=== PATIENT | male | born 1970 | race African-American/Black ===

== ENCOUNTER 2016-02-23 10:37 | Inpatient (IN) | payer OTHER ==
[2016-02-23 11:27] VITALS: BMI 25.4
--- NOTE | 2016-02-23 11:40 | HP ---
CIWA Score - CIWA Score Nausea/Vomitin Muscle Tremors: 3 Anxiety: 3 Agitation: 3 Paroxysmal Sweats: 2 Orientation: 0-Oriented Tacttile Disturbances: 2-Mild Itch/Numbness/Burn Auditory Disturbances: 2-Mild Harshness/Frighten Visual Disturbances: 2-Mild Sensitivity Headache: 2-Mild CIWA-Ar Total Score: 22 Admission ROS BHS - HPI Chief Complaint: I NEED HELP TO STOP DRINKING ALCOHOL,COCAINE AND MARIJUANA, Allergies/Adverse Reactions: Allergies Allergy/AdvReac Type Severity Reaction Status Date / Time No Known Drug Allergies Allergy Verified 02/23/16 11:43 PASTA Allergy Severe Vomiting Uncoded 02/23/16 11:43 History of Present Illness: THIS 45 YEARS OLD MALE WITH ALCOHOL,COCIANE AND MARIJUANA DEPENDENCE,WITHDRAWAL SYMPTOM,LAST DETOX 10/07/15 TO 10/11/15 SYNCOPE ALCOHOL RELATED MIGRAINE HEADACHE LOW BACK PAIN NO SIGNIFICANT PERIOD OF SOBRIETY - Ebola screening Have you traveled outside of the country in the last 21 days: No Have you had contact with anyone from an Ebola affected area: No Have you been sick,other than usual withdrawal symptoms: No Do you have a fever: No - Review of Systems Constitutional: Loss of Appetite, Malaise, Night Sweats, Changes in sleep, Weakness, Unintentional Wgt. Loss EENT: reports: Tearing, Nose Congestion Respiratory: reports: No Symptoms reported Cardiac: reports: No Symptoms Reported GI: reports: Nausea, Poor Appetite, Vomiting, Abdominal cramping : reports: No Symptoms Reported, Lesions Musculoskeletal: reports: Muscle Pain Integumentary: reports: Dryness Neuro: reports: Headache, Tremors Endocrine: reports: No Symptoms Reported Hematology: reports: No Symptoms Reported Psychiatric: reports: Depressed Patient History - Patient Medical History Hx Anemia: Yes (not taking any iron supplement) Hx Asthma: No Hx Chronic Obstructive Pulmonary Disease (COPD): No Hx Cancer: No Hx Cardiac Disorders: No Hx Congestive Heart Failure: No Hx Hypertension: No Hx Hypercholesterolemia: No Hx Pacemaker: No HX Cerebrovascular Accident: No Hx Seizures: No Hx Dementia: No Hx Diabetes: No Hx Gastrointestinal Disorders: No Hx Liver Disease: No Hx Genitourinary Disorders: No Hx Sexually Transmitted Disorders: No Hx Renal Disease (ESRD): No Hx Thyroid Disease: No Hx Human Immunodeficiency Virus (HIV): No (negative LAST 10/07/15 TO 10/11/15) Hx Hepatitis C: No Hx Depression: No Hx Suicide Attempt: Yes (drug overdose 3 yrs ago) Hx Bipolar Disorder: Yes Hx Schizophrenia: Yes Other Medical History: NO SUICIDAL,NO HOMICIDAL - Patient Surgical History Past Surgical History: No Hx Neurologic Surgery: No Hx Cataract Extraction: No Hx Cardiac Surgery: No Hx Lung Surgery: No Hx Breast Surgery: No Hx Breast Biopsy: No Hx Abdominal Surgery: No Hx Appendectomy: No Hx Cholecystectomy: No Hx Genitourinary Surgery: No Hx Section: No Hx Orthopedic Surgery: No Anesthesia Reaction: No - PPD History Previous Implant?: Yes Documented Results: Negative w/proof Date: 10/09/15 Results: 0 mm PPD to be Administered?: No - Smoking Cessation Smoking history: Current every day smoker Have you smoked in the past 12 months: Yes Aproximately how many cigarettes per day: 3 Cigars Per Day: 0 Hx Chewing Tobacco Use: No Initiated information on smoking cessation: Yes 'Breaking Loose' booklet given: 02/23/16 - Substance & Tx. History Hx Alcohol Use: Yes Hx Substance Use: Yes Substance Use Type: Alcohol, Cocaine, Marijuana Hx Substance Use Treatment: Yes ([facility] 10/07/15 TO 10/11/15) - Substances Abused CCAINE Route: Smoking Frequency: Daily Amount used: $100 Age of first use: 26 Date of Last Use: 02/22/16 mARIJUNA Route: Smoking Frequency: Daily Amount used: $40 Age of first use: 19 Date of Last Use: 02/23/16 Family Disease History - Family Disease History Family Disease History: Diabetes: Mother (alcohol), Other: Father (ALCOHOL), Mother Admission Physical Exam S - Vital Signs Vital Signs: Vital Signs - 24 hr 02/23/16 11:25 Temperature 97.2 F L Pulse Rate 62 Respiratory 18 Rate Blood Pressure 120/74 - Physical General Appearance: Yes: Moderate Distress, Tremorous, Irritable, Sweating, Anxious HEENTM: Yes: Nasal Congestion Respiratory: Yes: Lungs Clear Neck: Yes: Within Normal Limits Breast: Yes: Within Normal Limits Cardiology: Yes: Within Normal Limits, Regular Rhythm, Regular Rate, S1, S2 Abdominal: Yes: Within Normal Limits, Non Tender, Flat, Soft Genitourinary: Yes: Within Normal Limits Back: Yes: Muscle Spasm Musculoskeletal: Yes: Back pain Extremities: Yes: Tremors 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, Fully Oriented, Alert, Motor Strength 5/5 Integumentary: Yes: Dry Lymphatic: Yes: Within Normal Limits - Diagnostic (1) Alcohol dependence with uncomplicated withdrawal Current Visit: No Status: Acute (2) Cannabis dependence Current Visit: No Status: Acute (3) Cocaine dependence Current Visit: No Status: Acute (4) Nicotine dependence Current Visit: No Status: Acute Qualifiers: Nicotine product type: cigarettes Substance use status: uncomplicated Qualified Code(s): F17.210 - Nicotine dependence, cigarettes, uncomplicated (5) Low back pain Current Visit: No Status: Chronic (6) Paranoid schizophrenia Current Visit: No Status: Chronic (7) Syncope Current Visit: No Status: Suspected Cleared for Admission [facility] - Detox or Rehab [facility] Level of Care: Medically Managed Detox Regimen/Protocol: Librium [facility] Breath Alcohol Content Breath Alcohol Content: 0 Urine Drug Screen - Results Drug Screen Negative: No Urine Drug Screen Results: THC-Marijuana, AJMES-Cocaine
[2016-02-23] MEDS ORDERED: MAGNESIUM CITRATE 300 ML BOTTLE PO PRN (11:48)
[2016-02-23] MEDS ORDERED: LOPERAMIDE HCL 2 MG CAPSULE PO PRN (11:48)
[2016-02-23] MEDS ORDERED: MAG HYDROX/AL HYDROX/SIMETH 30 ML UNIT-DOSE CUP PO PRN (11:48)
[2016-02-23] MEDS ORDERED: P-EPHED 60MG/TRIPROLIDI 2.5MG TABLET PO PRN (11:48)
[2016-02-23] MEDS ORDERED: diphenhydrAMINE HCL 50 MG CAPSULE PO PRN (11:48)
[2016-02-23] MEDS ORDERED: guaiFENesin/D-METHORPHAN HB 10 ML UNIT-DOSE CUPS PO PRN (11:48)
[2016-02-23] MEDS ORDERED: MENTHOL/PHENOL 1 EACH UD MM PRN (11:48)
[2016-02-23] MEDS ORDERED: ACETAMINOPHEN 325 MG TABLET (FP) PO PRN (11:48)
[2016-02-23] MEDS ORDERED: IBUPROFEN 400 MG TABLET (FP) PO PRN (11:48)
[2016-02-23] MEDS ORDERED: MAGNESIUM HYDROX 2400MG/30ML ORAL SUSPENSION 30 ML CUP PO PRN (11:48)
[2016-02-23] MEDS ORDERED: hydrOXYzine PAMOATE 50 MG CAPSULE (FP) PO PRN (11:48)
[2016-02-23] MEDS ORDERED: chlordiazePOXIDE HCL 25 MG CAPSULE PO PRN (11:48)
[2016-02-23] MEDS ORDERED: chlordiazePOXIDE HCL 25 MG CAPSULE PO ONE (11:53)
--- NOTE | 2016-02-23 14:58 | CONSULT ---
[facility] Psychiatric Consult - Data Date of interview: 02/23/16 Admission source: [facility] Identifying data: One of multiple admissions to [facility] for this 45 y/o AA male seeking detox treatment on for alcohol,cocaine (crack) and marijuana dependence.Patient is single,a father of three (he denies having children in this interview),domiciled (lives with his mother),unemployed and supported on SSI benefits. Substance Abuse History: - Smoking Cessation. Smoking history: Current every day smoker. Have you smoked in the past 12 months: Yes. Aproximately how many cigarettes per day: 3. Cigars Per Day: 0. Hx Chewing Tobacco Use: No. Initiated information on smoking cessation: Yes. 'Breaking Loose' booklet given : 02/23/16. - Substance & Tx. History. Hx Alcohol Use: Yes. Hx Substance Use : Yes. Substance Use Type: Alcohol, Cocaine, Marijuana. Hx Substance Use Treatment: Yes ([facility] 10/07/15 TO 10/11/15). - Substances Abused. CCAINE. Route: Smoking. Frequency: Daily. Amount used: $100. Age of first use: 26. Date of Last Use: 02/22/16. mARIJUNA. Route: Smoking. Frequency: Daily. Amount used: $40. Age of first use: 19. Date of Last Use: 02/23/16 Medical History: Significant for a history of pulmonary embolism and chronic lower back pain. Psychiatric History: History of multiple psychiatric hospitalizations under the diagnosis of paranoid schizophrenia.Mr Roblero is well known to [facility] where he goes in times of crisis for refill of medications (extensive utilization of CPEP services).Medications : zyprexa 10 mg po hs + trazodone 50 mg po hs.Noted history of a suicide attempt via overdose with medications years ago.Insomnia reported by patient. Physical/Sexual Abuse/Trauma History: Patient denies. Mental Status Exam - Mental Status Exam Alert and Oriented to: Time, Place, Person Cognitive Function: Good Patient Appearance: Well Groomed Mood: Withdrawn, Hopeful Affect: Appropriate, Blunted Patient Behavior: Fatigued, Appropriate, Cooperative Speech Pattern: Clear Voice Loudness: Normal Thought Process: Goal Oriented Thought Disorder: Bizarre Hallucinations: Denies Suicidal Ideation: Denies Homicidal Ideation: Denies Insight/Judgement: Poor Sleep: Poorly, Difficulty falling asleep Appetite: Good Muscle strength/Tone: Normal Gait/Station: Normal Psychiatric Findings - Problem List ([place] 1, 2,3) (1) Alcohol dependence with uncomplicated withdrawal Current Visit: Yes Status: Acute (2) Cannabis dependence Current Visit: Yes Status: Acute (3) Cocaine dependence Current Visit: Yes Status: Acute (4) Nicotine dependence Current Visit: Yes Status: Acute Qualifiers: Nicotine product type: cigarettes Substance use status: uncomplicated Qualified Code(s): F17.210 - Nicotine dependence, cigarettes, uncomplicated (5) Substance induced mood disorder Current Visit: Yes Status: Acute (6) Paranoid schizophrenia Current Visit: Yes Status: Chronic (7) Low back pain Current Visit: Yes Status: Chronic - Initial Treatment Plan Initial Treatment Plan: Psychoeducation.Detoxification.Medications :olanzapine 10 mg po hs + trazodone 50 mg po hs.Side effects/benefits discussed with patient.Made aware of risk of metabolic syndrome (zyprexa) and priapism ( trazodone).Patient consents (verbally) to follow this regimen.Observation.
[2016-02-23 16:33] LABS: URINE APPEARANCE CLEAR; URINE BILIRUBIN NEGATIVE (NEGATIVE); URINE BLOOD TRACE-LYSE (NEGATIVE); URINE COLOR LT. YELLOW; URINE GLUCOSE (UA) NEGATIVE (NEGATIVE); URINE KETONE NEGATIVE (NEGATIVE); URINE LEUK ESTERASE NEGATIVE (NEGATIVE); URINE NITRITE NEGATIVE (NEGATIVE); URINE PROTEIN NEGATIVE (NEGATIVE); URINE UROBILINOGEN 0.2 E.U/dl E.U./dl (0.2-1.0)
[2016-02-23] MEDS: chlordiazePOXIDE HCL 25 MG CAPSULE PO SCH ×2 (17:55→22:18)
[2016-02-23] MEDS: THIAMINE HCL 100 MG TABLET (FP) PO SCH (22:17)
[2016-02-23] MEDS: traZODone HCL 50 MG TABLET (FP) PO SCH (22:18)
[2016-02-23] MEDS: OLANZapine 10 MG TABLET PO SCH (22:18)
--- NOTE | 2016-02-23 23:56 | EKG ---
Test Reason : Blood Pressure : / mmHG Vent. Rate : 066 BPM Atrial Rate : 066 BPM P-R Int : 154 ms QRS Dur : 084 ms QT Int : 422 ms P-R-T Axes : 077 076 046 degrees QTc Int : 442 ms NORMAL SINUS RHYTHM NORMAL ECG NO PREVIOUS ECGS AVAILABLE Confirmed by RAMU BELL, BRIAN ([id number]) on 02/23/2016 11:56:38 PM Referred By: London Mark Confirmed By:BRIAN GUALLPA MD
[2016-02-24] MEDS: chlordiazePOXIDE HCL 25 MG CAPSULE PO SCH ×4 (05:07→22:36)
--- NOTE | 2016-02-24 09:35 | PN ---
[facility] CIWA - CIWA Score Nausea/Vomitin Muscle Tremors: 3 Anxiety: 3 Agitation: 3 Paroxysmal Sweats: 3 Orientation: 0-Oriented Tacttile Disturbances: 2-Mild Itch/Numbness/Burn Auditory Disturbances: 0-None Visual Disturbances: 0-None Headache: 0-None Present CIWA-Ar Total Score: 17 S Progress Note (SOAP) Subjective: interrupted sleep, sweats , shakes Objective: 02/24/16 09:33 Vital Signs Temperature 98.2 F 02/24/16 05:46 Pulse Rate 64 02/24/16 05:46 Respiratory Rate 16 02/24/16 05:46 Blood Pressure 106/66 02/24/16 05:46 O2 Sat by Pulse Oximetry (%) Laboratory Tests 02/23/16 14:00 Urine Color Lt. yellow Urine Appearance Clear Urine pH 6.0 Ur Specific [place] 1.025 Urine Protein Negative Urine Glucose (UA) Negative Urine Ketones Negative Urine Blood Trace-lyse Urine Nitrite Negative Urine Bilirubin Negative Urine Urobilinogen 0.2 e.u/dl Ur Leukocyte Esterase Negative Laboratory Tests 02/23/16 14:00 Urine Color Lt. yellow Urine Appearance Clear Urine pH 6.0 Ur Specific [place] 1.025 Urine Protein Negative Urine Glucose (UA) Negative Urine Ketones Negative Urine Blood Trace-lyse Urine Nitrite Negative Urine Bilirubin Negative Urine Urobilinogen 0.2 e.u/dl Ur Leukocyte Esterase Negative pending labs pt aox3 in nad ambualting Assessment: 02/24/16 09:35 withdrawlsx;s Plan: cont. detox increase fluids f/up pending labs
[2016-02-24] MEDS: PRENATAL VITAMINS W/ FOLIC ACID TABLET (FP) PO SCH (10:11)
[2016-02-24 10:19] LABS: MCH 24.5 pg (25.7-33.7); MCHC 32.2 g/dl (32.0-35.9); MEAN CELL VOLUME 76.2 fl (80-96); RDW 14.6 % (11.9-15.9); WHITE BLOOD COUNT 5.5 K/mm3 (4.0-10.0)
[2016-02-24 10:46] LABS: ALBUMIN 3.7 g/dl (3.4-5.0); ALK PHOS 86 U/L (45-117); ANION GAP 7 (8-16); BILIRUBIN,TOTAL 0.3 mg/dL (0.2-1.0); CALCIUM 8.7 mg/dL (8.5-10.1); CO2 26 mmol/L (21-32); CREATININE 1.1 mg/dL (0.7-1.3); GLUCOSE,RANDOM 113 mg/dL (74-106); SGOT/AST 20 U/L (15-37); SGPT/ALT 23 U/L (12-78); TOT PROT 6.5 g/dl (6.4-8.2)
[2016-02-24 11:57] LABS: PLATELET ESTIMATE ADEQUATE (NORMAL)
[2016-02-24] MEDS: OLANZapine 10 MG TABLET PO SCH (22:13)
[2016-02-24] MEDS: traZODone HCL 50 MG TABLET (FP) PO SCH (22:14)
[2016-02-24] MEDS: THIAMINE HCL 100 MG TABLET (FP) PO SCH (22:14)
[2016-02-25] MEDS: chlordiazePOXIDE HCL 25 MG CAPSULE PO SCH ×2 (05:22→10:14)
--- NOTE | 2016-02-25 08:46 | PN ---
S CIWA - CIWA Score Nausea/Vomitin Muscle Tremors: 3 Anxiety: 2 Agitation: 2 Paroxysmal Sweats: No Perspiration Orientation: 1-Uncertain about Date Tacttile Disturbances: 1-Very Mild Itch/Numbness Auditory Disturbances: 1-Very Mild Visual Disturbances: 1-Very Mild Sensitivity Headache: 2-Mild CIWA-Ar Total Score: 16 BHS Progress Note (SOAP) Subjective: ALERT,IRRITABLE,ANXIOUS,INTERRUPTED,TREMOR,TREMOR Objective: 02/25/16 08:43 Vital Signs Temperature 97.5 F L 02/25/16 06:14 Pulse Rate 56 L 02/25/16 06:14 Respiratory Rate 16 02/25/16 06:14 Blood Pressure 115/74 02/25/16 06:14 O2 Sat by Pulse Oximetry (%) EKG NSR,NORMAL ECG Laboratory Last Values WBC 5.5 K/mm3 (4.0-10.0) D 02/24/16 06:00 RBC 5.15 M/mm3 (4.00-5.60) 02/24/16 06:00 Hgb 12.6 GM/dL (11.7-16.9) 02/24/16 06:00 Hct 39.2 % (35.4-49) 02/24/16 06:00 MCV 76.2 fl (80-96) L 02/24/16 06:00 MCHC 32.2 g/dl (32.0-35.9) 02/24/16 06:00 RDW 14.6 % (11.9-15.9) 02/24/16 06:00 Plt Count Not Reportable 02/24/16 06:00 MPV 8.0 fl (7.5-11.1) 02/24/16 06:00 Platelet Estimate Adequate (NORMAL) 02/24/16 06:00 Platelet Comment Slt plt clumping 02/24/16 06:00 Sodium 139 mmol/L (136-145) 02/24/16 06:00 Potassium 3.7 mmol/L (3.5-5.1) 02/24/16 06:00 Chloride 106 mmol/L (98-107) 02/24/16 06:00 Carbon Dioxide 26 mmol/L (21-32) 02/24/16 06:00 Anion Gap 7 (8-16) L 02/24/16 06:00 BUN 19 mg/dL (7-18) H D 02/24/16 06:00 Creatinine 1.1 mg/dL (0.7-1.3) D 02/24/16 06:00 Creat Clearance w eGFR > 60 (>60) 02/24/16 06:00 Random Glucose 113 mg/dL (74-106) H D 02/24/16 06:00 Calcium 8.7 mg/dL (8.5-10.1) 02/24/16 06:00 Total Bilirubin 0.3 mg/dL (0.2-1.0) 02/24/16 06:00 AST 20 U/L (15-37) 02/24/16 06:00 ALT 23 U/L (12-78) 02/24/16 06:00 Alkaline Phosphatase 86 U/L (45-117) D 02/24/16 06:00 Total Protein 6.5 g/dl (6.4-8.2) 02/24/16 06:00 Albumin 3.7 g/dl (3.4-5.0) 02/24/16 06:00 Urine Color Lt. yellow 02/23/16 14:00 Urine Appearance Clear 02/23/16 14:00 Urine pH 6.0 (5.0-8.0) 02/23/16 14:00 Ur Specific [place] 1.025 (1.001-1.035) 02/23/16 14:00 Urine Protein Negative (NEGATIVE) 02/23/16 14:00 Urine Glucose (UA) Negative (NEGATIVE) 02/23/16 14:00 Urine Ketones Negative (NEGATIVE) 02/23/16 14:00 Urine Blood Trace-lyse (NEGATIVE) 02/23/16 14:00 Urine Nitrite Negative (NEGATIVE) 02/23/16 14:00 Urine Bilirubin Negative (NEGATIVE) 02/23/16 14:00 Urine Urobilinogen 0.2 e.u/dl E.U./dl (0.2-1.0) 02/23/16 14:00 Ur Leukocyte Esterase Negative (NEGATIVE) 02/23/16 14:00 RPR Titer Nonreactive (NONREACTIVE) 02/24/16 06:00 02/25/16 08:44 Assessment: 02/25/16 08:44 WITHDRAWAL SYMPTOM 02/25/16 08:45 Plan: CONTINUE DETOX,ENCOURAGE ORAL FLUID
--- NOTE | 2016-02-25 08:48 | PN ---
BHS Progress Note Note: INITIAL GLUCOSE IS 113,BGM MONITORING
[2016-02-25] MEDS: PRENATAL VITAMINS W/ FOLIC ACID TABLET (FP) PO SCH (10:13)
[2016-02-25] MEDS: chlordiazePOXIDE 5 MG CAPSULE PO SCH ×2 (17:55→23:13)
[2016-02-25] MEDS: OLANZapine 10 MG TABLET PO SCH (22:32)
[2016-02-25] MEDS: traZODone HCL 50 MG TABLET (FP) PO SCH (22:32)
[2016-02-25] MEDS: THIAMINE HCL 100 MG TABLET (FP) PO SCH (22:32)
[2016-02-26] MEDS: chlordiazePOXIDE 5 MG CAPSULE PO SCH ×2 (06:27→10:48)
--- NOTE | 2016-02-26 09:38 | PN ---
S Progress Note (SOAP) Subjective: ALERT,ANXIOUS,INTERRUPTED SLEEP Objective: 02/26/16 09:37 Vital Signs Temperature 97.5 F L 02/26/16 06:00 Pulse Rate 54 L 02/26/16 06:00 Respiratory Rate 16 02/26/16 06:00 Blood Pressure 109/59 02/26/16 06:00 O2 Sat by Pulse Oximetry (%) Assessment: 02/26/16 09:37 WITHDRAWAL SYMPTOM Plan: CONTINUE DETOX,DISCHARGE IN AM
[2016-02-26] MEDS: PRENATAL VITAMINS W/ FOLIC ACID TABLET (FP) PO SCH (10:48)
[2016-02-26] MEDS: chlordiazePOXIDE HCL 10 MG CAPSULE PO SCH ×2 (18:24→22:04)
[2016-02-26] MEDS: traZODone HCL 50 MG TABLET (FP) PO SCH (22:04)
[2016-02-26] MEDS: OLANZapine 10 MG TABLET PO SCH (22:04)
[2016-02-26] MEDS: THIAMINE HCL 100 MG TABLET (FP) PO SCH (22:04)
[2016-02-27] MEDS: chlordiazePOXIDE HCL 10 MG CAPSULE PO SCH (05:54)
--- NOTE | 2016-02-27 09:28 | PN ---
S Progress Note (SOAP) Subjective: ALERT,NO COMPLAINT Objective: 02/27/16 09:27 Vital Signs Temperature 97.5 F L 02/27/16 06:00 Pulse Rate 57 L 02/27/16 06:00 Respiratory Rate 18 02/27/16 06:00 Blood Pressure 112/60 02/27/16 06:00 O2 Sat by Pulse Oximetry (%) Assessment: 02/27/16 09:27 DETOX COMPLETED,NO WITHDRAWAL SYMPTOM Plan: DISCHARGE TODAY,FOLLOW UP WITH AFTER CARE PROGRAM ARRANGEMENT
--- NOTE | 2016-02-27 09:31 | DS ---
[facility] Detox Discharge Summary Admission Date: 02/23/16 Discharge Date: 02/27/16 - History Present History: Alcohol Dependence, Cannabis Dependence, Cocaine Dependence Additional Comments: FOLLOW UP WITH AFTER CARE PROGRAM ARRANGEMENT Pertinent Past History: SCHIZOPHRENIA - Physical Exam Results Vital Signs: Vital Signs Temperature 97.5 F L 02/27/16 06:00 Pulse Rate 57 L 02/27/16 06:00 Respiratory Rate 18 02/27/16 06:00 Blood Pressure 112/60 02/27/16 06:00 O2 Sat by Pulse Oximetry (%) Pertinent Admission Physical Exam Findings: WITHDRAWAL SYMPTOM - Treatment Hospital Course: Detox Protocol Followed, Detoxed Safely, Responded well, Discharged Condition Good Patient has Accepted a Rehab Referral to: [facility] - Medication Discharge Medications: Ambulatory Orders Trazodone HCl [Desyrel -] 50 mg PO HS 10/07/15 Olanzapine 10 mg PO HS #30 tablet 10/08/15 Olanzapine [Zyprexa] 10 mg PO HS #30 tablet 02/23/16 Trazodone HCl [Desyrel -] 50 mg PO HS #30 tablet 02/23/16 - Diagnosis (1) Alcohol dependence with uncomplicated withdrawal Current Visit: Yes Status: Acute (2) Cannabis dependence Current Visit: Yes Status: Acute (3) Cocaine dependence Current Visit: Yes Status: Acute (4) Nicotine dependence Current Visit: Yes Status: Acute Qualifiers: Nicotine product type: cigarettes Substance use status: uncomplicated Qualified Code(s): F17.210 - Nicotine dependence, cigarettes, uncomplicated (5) Low back pain Current Visit: Yes Status: Chronic (6) Paranoid schizophrenia Current Visit: Yes Status: Chronic (7) Syncope Current Visit: No Status: Suspected - AMA Did Patient Leave Against Medical Advice: No
[2016-02-27 10:14] VITALS: BP 131/76; PULSE 74; TEMP 97.7
== END 2016-02-27 10:15 | disposition home or self-care (01) | DRG 774 ==
LOC: YASAS 10:37 → Y6N 11:46
PROVIDERS: ADMIT Internal Medicine Addiction Medicine; ATTEND Internal Medicine Addiction Medicine
PROC: HZ2ZZZZ Detoxification Services for Substance Abuse Treatment (ICD-10-PCS; principal; 2016-02-23)
DX: F10.230 Alcohol dependence with withdrawal, uncomplicated (principal); F14.20 Cocaine dependence, uncomplicated; F12.20 Cannabis dependence, uncomplicated; F17.210 Nicotine dependence, cigarettes, uncomplicated; F20.0 Paranoid schizophrenia; F19.24 Other psychoactive substance dependence with psychoactive substance-induced mood disorder; M54.5 Low back pain; G89.29 Other chronic pain; Z86.79 Personal history of other diseases of the circulatory system; Z86.711 Personal history of pulmonary embolism; Z86.2 Personal history of diseases of the blood and blood-forming organs and certain disorders involving the immune mechanism; Z91.5 Personal history of self-harm
CPT/HCPCS: 36415; 80053; 81003; 85027; 86593; 93005; 93010

== ENCOUNTER 2016-06-23 10:47 | Inpatient (IN) | payer OTHER ==
[2016-06-23 12:51] VITALS: BMI 23.6
--- NOTE | 2016-06-23 13:36 | HP ---
CIWA Score - CIWA Score Nausea/Vomitin-Mild Nausea/No Vomiting Muscle Tremors: 4-Moderate,w/Arms Extend Anxiety: 3 Agitation: 4-Moderately Restless Paroxysmal Sweats: 3 Orientation: 0-Oriented Tacttile Disturbances: 0-None Auditory Disturbances: 0-None Visual Disturbances: 0-None Headache: 1-Very Mild CIWA-Ar Total Score: 16 Admission ROS BHS - HPI Chief Complaint: I am here to detox. Allergies/Adverse Reactions: Allergies Allergy/AdvReac Type Severity Reaction Status Date / Time No Known Drug Allergies Allergy Verified 06/23/16 13:19 PASTA Allergy Severe Vomiting Uncoded 06/23/16 13:19 History of Present Illness: pt is a 46yr old male with a history of alcohol, cocaine and cannabis dependence seeking detox for treatment. Exam Limitations: No Limitations - Ebola screening Have you traveled outside of the country in the last 21 days: No Have you had contact with anyone from an Ebola affected area: No Have you been sick,other than usual withdrawal symptoms: No Do you have a fever: No - Review of Systems Constitutional: Diaphoresis, Loss of Appetite, Night Sweats, Unintentional Wgt. Loss EENT: reports: Blurred Vision Respiratory: reports: No Symptoms reported Cardiac: reports: No Symptoms Reported GI: reports: Diarrhea, Poor Appetite, Poor Fluid Intake : reports: No Symptoms Reported Musculoskeletal: reports: Back Pain, Joint Pain, Muscle Pain Integumentary: reports: No Symptoms Reported, Flushing, Sweating Neuro: reports: Tingling, Tremors Endocrine: reports: See HPI, Excessive Sweating, Flushing, Intolerance to Cold Hematology: reports: No Symptoms Reported, Anemia Psychiatric: reports: Judgement Intact, Orientated x3, Agitated, Anxious Other Systems: Reviewed and Negative Patient History - Patient Medical History Hx Anemia: Yes (not taking any iron supplement) Hx Asthma: No Hx Chronic Obstructive Pulmonary Disease (COPD): No Hx Cancer: No Hx Cardiac Disorders: No Hx Congestive Heart Failure: No Hx Hypertension: No Hx Hypercholesterolemia: No Hx Pacemaker: No HX Cerebrovascular Accident: No Hx Seizures: No Hx Dementia: No Hx Diabetes: No Hx Gastrointestinal Disorders: No Hx Liver Disease: No Hx Genitourinary Disorders: No Hx Sexually Transmitted Disorders: No Hx Renal Disease (ESRD): No Hx Thyroid Disease: No Hx Human Immunodeficiency Virus (HIV): No (negative) Hx Hepatitis C: No (negative) Hx Depression: Yes Hx Suicide Attempt: Yes (drug overdose 3 yrs ago) Hx Bipolar Disorder: Yes Hx Schizophrenia: Yes - Patient Surgical History Past Surgical History: No Hx Neurologic Surgery: No Hx Cataract Extraction: No Hx Cardiac Surgery: No Hx Lung Surgery: No Hx Breast Surgery: No Hx Breast Biopsy: No Hx Abdominal Surgery: No Hx Appendectomy: No Hx Cholecystectomy: No Hx Genitourinary Surgery: No Hx Section: No Hx Orthopedic Surgery: No Anesthesia Reaction: No - PPD History Previous Implant?: Yes Documented Results: Negative w/o proof Date: 10/09/15 Results: 0 mm PPD to be Administered?: No - Reproductive History Patient is a Female of Child Bearing Age (11 -55 yrs old): No - Smoking Cessation Smoking history: Current every day smoker Have you smoked in the past 12 months: Yes Aproximately how many cigarettes per day: 3 Cigars Per Day: 0 Hx Chewing Tobacco Use: No Initiated information on smoking cessation: Yes 'Breaking Loose' booklet given: 06/23/16 - Substance & Tx. History Hx Alcohol Use: Yes Hx Substance Use: Yes Substance Use Type: Alcohol, Cocaine Hx Substance Use Treatment: Yes - Substances Abused Crack Route: Smoking Frequency: Daily Amount used: $100 Age of first use: 19 Date of Last Use: 06/22/16 Alcohol-vodka/beer Route: Oral Frequency: Daily Amount used: 2 pints vodka/1 six pack beer Age of first use: 19 Date of Last Use: 06/22/16 Family Disease History - Family Disease History Family Disease History: Diabetes: Mother (alcohol), Other: Father (ALCOHOL), Mother Admission Physical Exam [facility] - Vital Signs Vital Signs: Vital Signs - 24 hr 06/23/16 12:49 Temperature 96.4 F L Pulse Rate 63 Respiratory 20 Rate Blood Pressure 135/74 - Physical General Appearance: Yes: Appropriately Dressed, Moderate Distress, Tremorous, Irritable, Sweating, Anxious HEENTM: Yes: Normal Voice Respiratory: Yes: Lungs Clear, Normal Breath Sounds, No Respiratory Distress Neck: Yes: No masses,lesions,Nodules Breast: Yes: Within Normal Limits Cardiology: Yes: Regular Rhythm, Regular Rate, S1, S2 Abdominal: Yes: Normal Bowel Sounds, Non Tender, Soft Genitourinary: Yes: Within Normal Limits Back: Yes: Normal Inspection Musculoskeletal: Yes: full range of Motion, Back pain Extremities: Yes: Normal Capillary Refill, Normal Inspection, Non-Tender, Tremors Neurological: Yes: Fully Oriented, Alert, Normal Response Integumentary: Yes: Normal Color, Diaphoresis Lymphatic: Yes: Within Normal Limits - Diagnostic (1) Alcohol dependence with uncomplicated withdrawal Current Visit: Yes Status: Chronic (2) Cocaine dependence Current Visit: Yes Status: Chronic (3) Nicotine dependence Current Visit: Yes Status: Chronic Qualifiers: Nicotine product type: cigarettes Substance use status: uncomplicated Qualified Code(s): F17.210 - Nicotine dependence, cigarettes, uncomplicated (4) Low back pain Current Visit: Yes Status: Chronic (5) Cannabis dependence Current Visit: Yes Status: Chronic Cleared for Admission [facility] - Detox or Rehab [facility] Level of Care: Medically Managed Detox Regimen/Protocol: Librium [facility] Breath Alcohol Content Breath Alcohol Content: 0 Urine Drug Screen - Results Drug Screen Negative: No Urine Drug Screen Results: THC-Marijuana, JAMES-Cocaine
[2016-06-23] MEDS ORDERED: P-EPHED 60MG/TRIPROLIDI 2.5MG TABLET PO PRN (13:39)
[2016-06-23] MEDS ORDERED: ACETAMINOPHEN 325 MG TABLET (FP) PO PRN (13:39)
[2016-06-23] MEDS ORDERED: guaiFENesin/D-METHORPHAN HB 10 ML UNIT-DOSE CUPS PO PRN (13:39)
[2016-06-23] MEDS ORDERED: MAGNESIUM CITRATE 300 ML BOTTLE PO PRN (13:39)
[2016-06-23] MEDS ORDERED: IBUPROFEN 400 MG TABLET (FP) PO PRN (13:39)
[2016-06-23] MEDS ORDERED: chlordiazePOXIDE HCL 25 MG CAPSULE PO PRN (13:39)
[2016-06-23] MEDS ORDERED: MAG HYDROX/AL HYDROX/SIMETH 30 ML UNIT-DOSE CUP PO PRN (13:39)
[2016-06-23] MEDS ORDERED: MENTHOL/PHENOL 1 EACH UD MM PRN (13:39)
[2016-06-23] MEDS ORDERED: LOPERAMIDE HCL 2 MG CAPSULE PO PRN (13:39)
[2016-06-23] MEDS ORDERED: MAGNESIUM HYDROX 2400MG/30ML ORAL SUSPENSION 30 ML CUP PO PRN (13:39)
[2016-06-23] MEDS ORDERED: diphenhydrAMINE HCL 50 MG CAPSULE PO PRN (13:39)
[2016-06-23] MEDS ORDERED: hydrOXYzine PAMOATE 50 MG CAPSULE (FP) PO PRN (13:39)
[2016-06-23] MEDS ORDERED: chlordiazePOXIDE HCL 25 MG CAPSULE PO ONE (14:57)
[2016-06-23] MEDS: chlordiazePOXIDE HCL 25 MG CAPSULE PO SCH ×2 (18:00→22:45)
[2016-06-23 18:44] LABS: URINE APPEARANCE CLEAR; URINE BILIRUBIN NEGATIVE (NEGATIVE); URINE BLOOD NEGATIVE (NEGATIVE); URINE COLOR LTYELLOW; URINE GLUCOSE (UA) NEGATIVE (NEGATIVE); URINE KETONE NEGATIVE (NEGATIVE); URINE LEUK ESTERASE NEGATIVE (NEGATIVE); URINE NITRITE NEGATIVE (NEGATIVE); URINE PROTEIN NEGATIVE (NEGATIVE); URINE UROBILINOGEN NEGATIVE E.U./dl (0.2-1.0)
--- NOTE | 2016-06-23 19:47 | CONSULT ---
[facility] Psychiatric Consult - Data Date of interview: 06/23/16 Admission source: [facility] Identifying data: Another admission to [facility] for this 46 y/o AA male seeking detox treatment on for alcohol,cocaine (crack) and marijuana dependence.Patient is single without children,domiciled (lives with his mother), unemployed and supported on SSI benefits. Substance Abuse History: - Smoking Cessation. Smoking history: Current every day smoker. Have you smoked in the past 12 months: Yes. Aproximately how many cigarettes per day: 3. Cigars Per Day: 0. Hx Chewing Tobacco Use: No. Initiated information on smoking cessation: Yes. 'Breaking Loose' booklet given : 06/23/16. - Substance & Tx. History. Hx Alcohol Use: Yes. Hx Substance Use : Yes. Substance Use Type: Alcohol, Cocaine. Hx Substance Use Treatment: Yes. - Substances Abused. Crack. Route: Smoking. Frequency: Daily. Amount used: $100. Age of first use: 19. Date of Last Use: 06/22/16. Alcohol- vodka/beer. Route: Oral. Frequency: Daily. Amount used: 2 pints vodka/1 six pack beer. Age of first use: 19. Date of Last Use: 06/22/16. Confirmed by patient. Medical History: History of pulmonary embolism,anemia and chronic lower back pain. Psychiatric History: History of multiple psychiatric hospitalizations.Diagnosed with Paranoid Schizophrenia.No history of regular OPD care.Mr Roblero is well known to [facility] (more than five hospitalizations).He utilizes their [facility] services for medication refills (zyprexa 10 mg po hs + trazodone 50 mg po hs).Remote history of a suicide attempt (overdose with medications). Physical/Sexual Abuse/Trauma History: Patient denies. Additional Comment: Urine Drug Screen Results: THC-Marijuana, JAMES-Cocaine.Noted. Mental Status Exam - Mental Status Exam Alert and Oriented to: Time, Place, Person Cognitive Function: Good Patient Appearance: Unkempt, Disheveled (malodorous;derelict braided haido and matta) Mood: Nervous, Withdrawn Affect: Blunted Patient Behavior: Fatigued, Cooperative Speech Pattern: Clear Voice Loudness: Moderately Soft/Quiet Thought Process: Goal Oriented Thought Disorder: Bizarre Hallucinations: Denies Suicidal Ideation: Denies Homicidal Ideation: Denies Insight/Judgement: Poor Sleep: Poorly, Difficulty falling asleep Appetite: Good Muscle strength/Tone: Normal Gait/Station: Normal Psychiatric Findings - Problem List ([place] 1, 2,3) (1) Alcohol dependence with uncomplicated withdrawal Current Visit: Yes Status: Acute (2) Cannabis dependence Current Visit: Yes Status: Acute (3) Cocaine dependence Current Visit: Yes Status: Acute (4) Nicotine dependence Current Visit: Yes Status: Acute Qualifiers: Nicotine product type: cigarettes Substance use status: uncomplicated Qualified Code(s): F17.210 - Nicotine dependence, cigarettes, uncomplicated (5) Substance induced mood disorder Current Visit: Yes Status: Acute (6) Paranoid schizophrenia Current Visit: Yes Status: Chronic (7) Low back pain Current Visit: Yes Status: Chronic - Initial Treatment Plan Initial Treatment Plan: Psychoeducation.Detoxification.Medications : zyprexa 10 mg po hs + trazodone 50 mg po hs.Side effects/benefits discussed with patient.Made aware of potential for priapism (trazodone) and metabolic syndrome, adverse cardiac events (olanzapine).Good tolerability reported by patient.He agrees to ascribe to this careplan.Observation.
[2016-06-23 20:32] LABS: HIV 1 & 2 AB NEGATIVE; HIV 1 AGp24 NEGATIVE
[2016-06-23] MEDS: OLANZapine 10 MG TABLET PO SCH (22:45)
[2016-06-23] MEDS: traZODone HCL 50 MG TABLET (FP) PO SCH (22:45)
[2016-06-23] MEDS: THIAMINE HCL 100 MG TABLET (FP) PO SCH (22:45)
[2016-06-24] MEDS: chlordiazePOXIDE HCL 25 MG CAPSULE PO SCH ×4 (05:39→22:15)
[2016-06-24 10:24] LABS: MCH 24.1 pg (25.7-33.7); MCHC 31.4 g/dl (32.0-35.9); MEAN CELL VOLUME 76.8 fl (80-96); PLATELET COUNT 224 K/MM3 (134-434); RDW 15.4 % (11.9-15.9); WHITE BLOOD COUNT 3.9 K/mm3 (4.0-10.0)
[2016-06-24 10:34] LABS: ALBUMIN 3.9 g/dl (3.4-5.0); ANION GAP 5 (8-16); CALCIUM 8.8 mg/dL (8.5-10.1); CO2 29 mmol/L (21-32); GLUCOSE,RANDOM 87 mg/dL (74-106); SGOT/AST 26 U/L (15-37)
[2016-06-24 10:37] LABS: ALK PHOS 78 U/L (45-117); BILIRUBIN,TOTAL 0.4 mg/dL (0.2-1.0); COCKROFT - GAULT 79.43; CREATININE 1.1 mg/dL (0.7-1.3); SGPT/ALT 28 U/L (12-78); TOT PROT 7.1 g/dl (6.4-8.2)
[2016-06-24] MEDS: PRENATAL VITAMINS W/ FOLIC ACID TABLET (FP) PO SCH (10:55)
--- NOTE | 2016-06-24 12:18 | PN ---
S CIWA - CIWA Score Nausea/Vomitin Muscle Tremors: 3 Anxiety: 3 Agitation: 3 Paroxysmal Sweats: 1-Minimal Palms Moist Orientation: 0-Oriented Tacttile Disturbances: 1-Very Mild Itch/Numbness Auditory Disturbances: 1-Very Mild Visual Disturbances: 1-Very Mild Sensitivity Headache: 2-Mild CIWA-Ar Total Score: 18 BHS Progress Note (SOAP) Subjective: ALERT,IRRITABLE,ANXIOUS,INTERRUPTED SLEEP,TREMOR Objective: 06/24/16 12:14 Vital Signs Temperature 97.1 F L 06/24/16 10:29 Pulse Rate 81 06/24/16 10:29 Respiratory Rate 16 06/24/16 10:29 Blood Pressure 100/76 06/24/16 10:29 O2 Sat by Pulse Oximetry (%) EKG SINUS BRADYCARDIA,RATE 53/MIN.NO CHEST PAIN,NO SOB,NO DIZZINESS 06/24/16 12:30 06/24/16 12:30 Vital Signs Temperature 97.1 F L 06/24/16 10:29 Pulse Rate 81 06/24/16 10:29 Respiratory Rate 16 06/24/16 10:29 Blood Pressure 100/76 06/24/16 10:29 O2 Sat by Pulse Oximetry (%) Laboratory Last Values WBC 3.9 K/mm3 (4.0-10.0) L 06/24/16 06:05 RBC 5.65 M/mm3 (4.00-5.60) H 06/24/16 06:05 Hgb 13.6 GM/dL (11.7-16.9) 06/24/16 06:05 Hct 43.3 % (35.4-49) 06/24/16 06:05 MCV 76.8 fl (80-96) L 06/24/16 06:05 MCHC 31.4 g/dl (32.0-35.9) L 06/24/16 06:05 RDW 15.4 % (11.9-15.9) 06/24/16 06:05 Plt Count 224 K/MM3 (134-434) 06/24/16 06:05 MPV 8.0 fl (7.5-11.1) 06/24/16 06:05 Sodium 142 mmol/L (136-145) 06/24/16 06:05 Potassium 4.5 mmol/L (3.5-5.1) D 06/24/16 06:05 Chloride 108 mmol/L (98-107) H 06/24/16 06:05 Carbon Dioxide 29 mmol/L (21-32) 06/24/16 06:05 Anion Gap 5 (8-16) L 06/24/16 06:05 BUN 19 mg/dL (7-18) H 06/24/16 06:05 Creatinine 1.1 mg/dL (0.7-1.3) 06/24/16 06:05 Creat Clearance w eGFR > 60 (>60) 06/24/16 06:05 Random Glucose 87 mg/dL (74-106) D 06/24/16 06:05 Calcium 8.8 mg/dL (8.5-10.1) 06/24/16 06:05 Total Bilirubin 0.4 mg/dL (0.2-1.0) D 06/24/16 06:05 AST 26 U/L (15-37) D 06/24/16 06:05 ALT 28 U/L (12-78) D 06/24/16 06:05 Alkaline Phosphatase 78 U/L (45-117) 06/24/16 06:05 Total Protein 7.1 g/dl (6.4-8.2) 06/24/16 06:05 Albumin 3.9 g/dl (3.4-5.0) 06/24/16 06:05 Urine Color Ltyellow 06/23/16 15:00 Urine Appearance Clear 06/23/16 15:00 Urine pH 5.0 (5.0-8.0) 06/23/16 15:00 Ur Specific [place] 1.025 (1.005-1.025) 06/23/16 15:00 Urine Protein Negative (NEGATIVE) 06/23/16 15:00 Urine Glucose (UA) Negative (NEGATIVE) 06/23/16 15:00 Urine Ketones Negative (NEGATIVE) 06/23/16 15:00 Urine Blood Negative (NEGATIVE) 06/23/16 15:00 Urine Nitrite Negative (NEGATIVE) 06/23/16 15:00 Urine Bilirubin Negative (NEGATIVE) 06/23/16 15:00 Urine Urobilinogen Negative E.U./dl (0.2-1.0) 06/23/16 15:00 Ur Leukocyte Esterase Negative (NEGATIVE) 06/23/16 15:00 HIV 1&2 Antibody Screen Negative 06/23/16 14:00 HIV P24 Antigen Negative 06/23/16 14:00 06/24/16 12:32 06/24/16 12:35 Assessment: 06/24/16 12:32 WITHDRAWAL SYMPTOM 06/24/16 12:35 06/24/16 12:35 Plan: CONTINUE DETOX
[2016-06-24] MEDS: traZODone HCL 50 MG TABLET (FP) PO SCH (22:15)
[2016-06-24] MEDS: THIAMINE HCL 100 MG TABLET (FP) PO SCH (22:15)
[2016-06-24] MEDS: OLANZapine 10 MG TABLET PO SCH (22:15)
[2016-06-25] MEDS: chlordiazePOXIDE HCL 25 MG CAPSULE PO SCH ×2 (06:07→11:00)
--- NOTE | 2016-06-25 10:19 | PN ---
[facility] CIWA - CIWA Score Nausea/Vomitin Muscle Tremors: 3 Anxiety: 3 Agitation: 3 Paroxysmal Sweats: 1-Minimal Palms Moist Orientation: 0-Oriented Tacttile Disturbances: 1-Very Mild Itch/Numbness Auditory Disturbances: 1-Very Mild Visual Disturbances: 1-Very Mild Sensitivity Headache: 1-Very Mild CIWA-Ar Total Score: 17 S Progress Note (SOAP) Subjective: ALERT,IRRITABLE,ANXIOUS,INTERRUPTED SLEEP,TREMOR Objective: 06/25/16 10:18 Vital Signs Temperature 97.9 F 06/25/16 10:08 Pulse Rate 82 06/25/16 10:08 Respiratory Rate 16 06/25/16 10:08 Blood Pressure 113/74 06/25/16 10:08 O2 Sat by Pulse Oximetry (%) Laboratory Last Values WBC 3.9 K/mm3 (4.0-10.0) L 06/24/16 06:05 RBC 5.65 M/mm3 (4.00-5.60) H 06/24/16 06:05 Hgb 13.6 GM/dL (11.7-16.9) 06/24/16 06:05 Hct 43.3 % (35.4-49) 06/24/16 06:05 MCV 76.8 fl (80-96) L 06/24/16 06:05 MCHC 31.4 g/dl (32.0-35.9) L 06/24/16 06:05 RDW 15.4 % (11.9-15.9) 06/24/16 06:05 Plt Count 224 K/MM3 (134-434) 06/24/16 06:05 MPV 8.0 fl (7.5-11.1) 06/24/16 06:05 Sodium 142 mmol/L (136-145) 06/24/16 06:05 Potassium 4.5 mmol/L (3.5-5.1) D 06/24/16 06:05 Chloride 108 mmol/L (98-107) H 06/24/16 06:05 Carbon Dioxide 29 mmol/L (21-32) 06/24/16 06:05 Anion Gap 5 (8-16) L 06/24/16 06:05 BUN 19 mg/dL (7-18) H 06/24/16 06:05 Creatinine 1.1 mg/dL (0.7-1.3) 06/24/16 06:05 Creat Clearance w eGFR > 60 (>60) 06/24/16 06:05 Random Glucose 87 mg/dL (74-106) D 06/24/16 06:05 Calcium 8.8 mg/dL (8.5-10.1) 06/24/16 06:05 Total Bilirubin 0.4 mg/dL (0.2-1.0) D 06/24/16 06:05 AST 26 U/L (15-37) D 06/24/16 06:05 ALT 28 U/L (12-78) D 06/24/16 06:05 Alkaline Phosphatase 78 U/L (45-117) 06/24/16 06:05 Total Protein 7.1 g/dl (6.4-8.2) 06/24/16 06:05 Albumin 3.9 g/dl (3.4-5.0) 06/24/16 06:05 Urine Color Ltyellow 06/23/16 15:00 Urine Appearance Clear 06/23/16 15:00 Urine pH 5.0 (5.0-8.0) 06/23/16 15:00 Ur Specific [place] 1.025 (1.005-1.025) 06/23/16 15:00 Urine Protein Negative (NEGATIVE) 06/23/16 15:00 Urine Glucose (UA) Negative (NEGATIVE) 06/23/16 15:00 Urine Ketones Negative (NEGATIVE) 06/23/16 15:00 Urine Blood Negative (NEGATIVE) 06/23/16 15:00 Urine Nitrite Negative (NEGATIVE) 06/23/16 15:00 Urine Bilirubin Negative (NEGATIVE) 06/23/16 15:00 Urine Urobilinogen Negative E.U./dl (0.2-1.0) 06/23/16 15:00 Ur Leukocyte Esterase Negative (NEGATIVE) 06/23/16 15:00 RPR Titer Nonreactive (NONREACTIVE) 06/24/16 06:05 HIV 1&2 Antibody Screen Negative 06/23/16 14:00 HIV P24 Antigen Negative 06/23/16 14:00 Assessment: 06/25/16 10:18 WITHDRAWAL SYMPTOM Plan: CONTINUE DETOX
[2016-06-25] MEDS: PRENATAL VITAMINS W/ FOLIC ACID TABLET (FP) PO SCH (10:31)
[2016-06-25] MEDS: chlordiazePOXIDE 5 MG CAPSULE PO SCH ×2 (17:25→23:51)
[2016-06-25] MEDS: traZODone HCL 50 MG TABLET (FP) PO SCH (22:29)
[2016-06-25] MEDS: THIAMINE HCL 100 MG TABLET (FP) PO SCH (22:29)
[2016-06-25] MEDS: OLANZapine 10 MG TABLET PO SCH (22:29)
[2016-06-26] MEDS: chlordiazePOXIDE 5 MG CAPSULE PO SCH ×2 (05:45→10:22)
[2016-06-26] MEDS: PRENATAL VITAMINS W/ FOLIC ACID TABLET (FP) PO SCH (10:22)
--- NOTE | 2016-06-26 11:07 | PN ---
BHS Progress Note (SOAP) Subjective: sweats shakes interrupted sleep Objective: 06/26/16 11:05 Vital Signs Temperature 97.7 F 06/26/16 09:38 Pulse Rate 81 06/26/16 09:38 Respiratory Rate 20 06/26/16 09:38 Blood Pressure 134/85 06/26/16 09:38 O2 Sat by Pulse Oximetry (%) awake/alert ambulating no acute distress Assessment: 06/26/16 11:06 withdrawal sx Plan: continue detox increase fluids d/c in am
--- NOTE | 2016-06-26 13:06 | EKG ---
Test Reason : Blood Pressure : / mmHG Vent. Rate : 053 BPM Atrial Rate : 053 BPM P-R Int : 154 ms QRS Dur : 084 ms QT Int : 440 ms P-R-T Axes : 073 079 065 degrees QTc Int : 412 ms SINUS BRADYCARDIA OTHERWISE NORMAL ECG WHEN COMPARED WITH ECG OF 23-FEB-2016 12:47, NO SIGNIFICANT CHANGE WAS FOUND Confirmed by TA CAMPBELL MD ([id number]) on 06/26/2016 1:05:46 PM Referred By: Confirmed By:TA CAMPBELL MD
[2016-06-26] MEDS: chlordiazePOXIDE HCL 10 MG CAPSULE PO SCH ×2 (17:44→22:07)
[2016-06-26] MEDS: THIAMINE HCL 100 MG TABLET (FP) PO SCH (22:07)
[2016-06-26] MEDS: OLANZapine 10 MG TABLET PO SCH (22:07)
[2016-06-26] MEDS: traZODone HCL 50 MG TABLET (FP) PO SCH (22:07)
[2016-06-26] MEDS ORDERED: ONDANSETRON *ODT* 4 MG TABLET SL PRN (23:17)
[2016-06-27] MEDS: chlordiazePOXIDE HCL 10 MG CAPSULE PO SCH (06:08)
[2016-06-27 06:55] VITALS: BP 131/70; PULSE 61; TEMP 98.1
--- NOTE | 2016-06-27 08:54 | PN ---
S Progress Note (SOAP) Subjective: ALERT,NO COMPLAINT Objective: 06/27/16 08:53 Vital Signs Temperature 98.1 F 06/27/16 06:00 Pulse Rate 61 06/27/16 06:00 Respiratory Rate 18 06/27/16 06:00 Blood Pressure 131/70 06/27/16 06:00 O2 Sat by Pulse Oximetry (%) Assessment: 06/27/16 08:53 DETOX COMPLETED,NO WITHDRAWAL SYMPTOM Plan: DISCHARGE TODAY,FOLLOW UP WITH AFTER CARE PROGRAM ARRANGEMENT
--- NOTE | 2016-06-27 08:56 | DS ---
[facility] Detox Discharge Summary Admission Date: 06/23/16 Discharge Date: 06/27/16 - History Present History: Alcohol Dependence, Cannabis Dependence, Cocaine Dependence Additional Comments: FOLLOW UP WITH AFTER CARE PROGRAM A ARRANGEMENT Pertinent Past History: NICOTINE DEPENDENCE - Physical Exam Results Vital Signs: Vital Signs Temperature 98.1 F 06/27/16 06:00 Pulse Rate 61 06/27/16 06:00 Respiratory Rate 18 06/27/16 06:00 Blood Pressure 131/70 06/27/16 06:00 O2 Sat by Pulse Oximetry (%) Pertinent Admission Physical Exam Findings: WITHDRAWAL SYMPTOM - Treatment Hospital Course: Detox Protocol Followed, Detoxed Safely, Responded well, Discharged Condition Good, Rehab Referral Accepted Patient has Accepted a Rehab Referral to: [facility] - Medication Discharge Medications: Ambulatory Orders Trazodone HCl [Desyrel -] 50 mg PO HS 10/07/15 Olanzapine 10 mg PO HS #30 tablet 10/08/15 Olanzapine [Zyprexa] 10 mg PO HS #30 tablet 06/23/16 Trazodone HCl [Desyrel -] 50 mg PO HS #30 tablet 06/23/16 - AMA Did Patient Leave Against Medical Advice: No
[2016-06-27] MEDS: PRENATAL VITAMINS W/ FOLIC ACID TABLET (FP) PO SCH (09:19)
== END 2016-06-27 09:25 | disposition home or self-care (01) | DRG 774 ==
LOC: YASAS 10:47 → Y6N 14:45
PROVIDERS: ADMIT Internal Medicine Addiction Medicine; ATTEND Internal Medicine Addiction Medicine
PROC: HZ2ZZZZ Detoxification Services for Substance Abuse Treatment (ICD-10-PCS; principal; 2016-06-23)
DX: F10.230 Alcohol dependence with withdrawal, uncomplicated (principal); F14.20 Cocaine dependence, uncomplicated; F12.20 Cannabis dependence, uncomplicated; F17.210 Nicotine dependence, cigarettes, uncomplicated; F19.24 Other psychoactive substance dependence with psychoactive substance-induced mood disorder; F20.0 Paranoid schizophrenia; R00.1 Bradycardia, unspecified; M54.5 Low back pain; D64.9 Anemia, unspecified; Z86.711 Personal history of pulmonary embolism; Z91.5 Personal history of self-harm
CPT/HCPCS: 36415; 80053; 81003; 85027; 86593; 87389; 93005; 93010

== ENCOUNTER 2016-09-05 12:56 | Inpatient (IN) | payer OTHER ==
[2016-09-05 16:49] VITALS: BMI 24.2
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
[2016-09-05] MEDS ORDERED: LOPERAMIDE HCL 2 MG CAPSULE PO PRN (17:57)
[2016-09-05] MEDS ORDERED: ACETAMINOPHEN 325 MG TABLET (FP) PO PRN (17:57)
[2016-09-05] MEDS ORDERED: MAGNESIUM HYDROX 2400MG/30ML ORAL SUSPENSION 30 ML CUP PO PRN (17:57)
[2016-09-05] MEDS ORDERED: chlordiazePOXIDE HCL 25 MG CAPSULE PO PRN (17:57)
[2016-09-05] MEDS ORDERED: P-EPHED 60MG/TRIPROLIDI 2.5MG TABLET PO PRN (17:57)
[2016-09-05] MEDS ORDERED: NICOTINE POLACRILEX 2 MG GUM BUC PRN (17:57)
[2016-09-05] MEDS ORDERED: MAG HYDROX/AL HYDROX/SIMETH 30 ML UNIT-DOSE CUP PO PRN (17:57)
[2016-09-05] MEDS ORDERED: MAGNESIUM CITRATE 300 ML BOTTLE PO PRN (17:57)
[2016-09-05] MEDS ORDERED: MENTHOL/PHENOL 1 EACH UD MM PRN (17:57)
[2016-09-05] MEDS ORDERED: hydrOXYzine PAMOATE 50 MG CAPSULE (FP) PO PRN (17:57)
[2016-09-05] MEDS ORDERED: guaiFENesin/D-METHORPHAN HB 10 ML UNIT-DOSE CUPS PO PRN (17:57)
[2016-09-05] MEDS ORDERED: IBUPROFEN 400 MG TABLET (FP) PO PRN (17:57)
[2016-09-05] MEDS ORDERED: chlordiazePOXIDE HCL 25 MG CAPSULE PO ONE (18:30)
[2016-09-05] MEDS: chlordiazePOXIDE HCL 25 MG CAPSULE PO SCH (22:29)
[2016-09-05] MEDS: THIAMINE HCL 100 MG TABLET (FP) PO SCH (22:29)
[2016-09-05] MEDS: diphenhydrAMINE HCL 50 MG CAPSULE PO PRN (22:30)
[2016-09-05 23:20] LABS: URINE APPEARANCE CLEAR; URINE BILIRUBIN NEGATIVE (NEGATIVE); URINE BLOOD NEGATIVE (NEGATIVE); URINE COLOR YELLOW; URINE GLUCOSE (UA) NEGATIVE (NEGATIVE); URINE KETONE TRACE (NEGATIVE); URINE LEUK ESTERASE NEGATIVE (NEGATIVE); URINE NITRITE NEGATIVE (NEGATIVE); URINE PROTEIN NEGATIVE (NEGATIVE)
[2016-09-06] MEDS: chlordiazePOXIDE HCL 25 MG CAPSULE PO SCH ×4 (05:50→22:32)
[2016-09-06 10:26] LABS: MCH 24.4 pg (25.7-33.7); MCHC 32.1 g/dl (32.0-35.9); MEAN PLT VOLUME 7.9 fl (7.5-11.1); PLATELET COUNT 180 K/MM3 (134-434); RDW 14.6 % (11.9-15.9); WHITE BLOOD COUNT 5.2 K/mm3 (4.0-10.0)
[2016-09-06] MEDS: PRENATAL VITAMINS W/ FOLIC ACID TABLET (FP) PO SCH (10:52)
[2016-09-06 10:59] LABS: ALBUMIN 3.2 g/dl (3.4-5.0); ALK PHOS 64 U/L (45-117); ANION GAP 7 (8-16); BILIRUBIN,TOTAL 0.3 mg/dL (0.2-1.0); CALCIUM 8.5 mg/dL (8.5-10.1); CO2 28 mmol/L (21-32); CREATININE 0.9 mg/dL (0.7-1.3); GLUCOSE,RANDOM 78 mg/dL (74-106); SGOT/AST 23 U/L (15-37); SGPT/ALT 23 U/L (12-78); TOT PROT 5.8 g/dl (6.4-8.2)
--- NOTE | 2016-09-06 12:26 | EKG ---
Test Reason : Blood Pressure : / mmHG Vent. Rate : 051 BPM Atrial Rate : 051 BPM P-R Int : 164 ms QRS Dur : 096 ms QT Int : 468 ms P-R-T Axes : 075 078 069 degrees QTc Int : 431 ms SINUS BRADYCARDIA OTHERWISE NORMAL ECG WHEN COMPARED WITH ECG OF 23-JUN-2016 15:01, NO SIGNIFICANT CHANGE WAS FOUND Confirmed by GUNNAR MORGAN MD ([id number]) on 09/06/2016 12:26:30 PM Referred By: Confirmed By:GUNNAR MORGAN MD
--- NOTE | 2016-09-06 13:18 | CONSULT ---
[facility] Psychiatric Consult - Data Date of interview: 09/06/16 Admission source: [facility] Identifying data: Readmission to [facility] for this 46 y/o AA male seeking detox treatment on for alcohol,cocaine (crack) and marijuana dependence.Patient is single without children,domiciled (lives with his mother), unemployed and supported on SSI benefits. Substance Abuse History: Discussed with patient in this interview.Mr Roblero confirmed this [facility] report. - Smoking Cessation. Smoking history: Current every day smoker. Have you smoked in the past 12 months: Yes. Aproximately how many cigarettes per day: 3. Cigars Per Day: 0. Hx Chewing Tobacco Use: No. Initiated information on smoking cessation: Yes. 'Breaking Loose' booklet given: 09/05/16. - Substances Abused. Crack. Route: Smoking. Frequency: Daily. Amount used: $60. Age of first use: 21. Date of Last Use: 09/04/16. * * Alcohol-vodka. Route: Oral. Frequency: Daily. Amount used: 2 pts. Age of first use: 19. Date of Last Use: 09/04/16. Marijuana. Route: Smoking. Frequency: Daily. Amount used: $20. Age of first use: 19. Date of Last Use: 09/05/16 Medical History: History of pulmonary embolism,anemia and chronic lower back pain. Psychiatric History: Long standing history of mental illness.History of multiple psychiatric hospitalizations.Diagnosed with Paranoid Schizophrenia.Patient has a chronic history of non-adherence to OPD care.Known to [facility] (more than five hospitalizations).He still utilizes their [facility] services for medication refills (zyprexa 10 mg po hs + trazodone 50 mg po hs).Mr Roblero admits to a remote history of a suicide attempt (overdose with medications). Physical/Sexual Abuse/Trauma History: Patient denies. Additional Comment: Urine Drug Screen Results: THC-Marijuana, JAMES-Cocaine.Noted. Mental Status Exam - Mental Status Exam Alert and Oriented to: Time, Place, Person Cognitive Function: Good Patient Appearance: Unkempt, Disheveled Mood: Nervous, Withdrawn Affect: Blunted Patient Behavior: Fatigued, Cooperative Speech Pattern: Clear (non spontaneous) Voice Loudness: Normal Thought Process: Goal Oriented Thought Disorder: Not Present Hallucinations: Denies Suicidal Ideation: Denies Homicidal Ideation: Denies Insight/Judgement: Poor Sleep: Poorly, Difficulty falling asleep Appetite: Good Muscle strength/Tone: Normal Gait/Station: Normal Psychiatric Findings - Problem List ([place] 1, 2,3) (1) Paranoid schizophrenia Current Visit: Yes Status: Chronic (2) Alcohol dependence with uncomplicated withdrawal Current Visit: Yes Status: Acute (3) Cocaine dependence Current Visit: Yes Status: Acute (4) Nicotine dependence Current Visit: Yes Status: Acute Qualifiers: Nicotine product type: cigarettes Substance use status: in withdrawal Qualified Code(s): F17.213 - Nicotine dependence, cigarettes, with withdrawal (5) Substance induced mood disorder Current Visit: Yes Status: Acute (6) Low back pain Current Visit: Yes Status: Chronic (7) Insomnia Current Visit: Yes Status: Acute - Initial Treatment Plan Initial Treatment Plan: Psychoeducation provided in session.Detoxification in progress.Medications : trazodone 50 mg po hs + zyprexa 10 mg po hs.Side effects/ benefits discussed with patient.Made aware of potential for metabolic syndrome ( olanzapine) and priapism (trazodone).Patient reports these medications as well tolerated and efficacious.Consent (verbal) given.Observation.
--- NOTE | 2016-09-06 13:18 | PN ---
[facility] CIWA - CIWA Score Nausea/Vomitin-No Nausea/No Vomiting Muscle Tremors: 4-Moderate,w/Arms Extend Anxiety: 4-Mod. Anxious/Guarded Agitation: 4-Moderately Restless Paroxysmal Sweats: 1-Minimal Palms Moist Orientation: 0-Oriented Tacttile Disturbances: 3-Moderate Itch/Numb/Burn Auditory Disturbances: 0-None Visual Disturbances: 0-None Headache: 0-None Present CIWA-Ar Total Score: 16 S Progress Note (SOAP) Subjective: ANXIETY, TREMORS,SWEATS/CHILLS,DECREASED APPETITE. Objective: 09/06/16 13:17 Vital Signs Temperature 97 F L 09/06/16 09:34 Pulse Rate 55 L 09/06/16 09:34 Respiratory Rate 20 09/06/16 09:34 Blood Pressure 107/74 09/06/16 09:34 O2 Sat by Pulse Oximetry (%) Laboratory Last Values WBC 5.2 K/mm3 (4.0-10.0) D 09/06/16 06:30 RBC 5.08 M/mm3 (4.00-5.60) 09/06/16 06:30 Hgb 12.4 GM/dL (11.7-16.9) 09/06/16 06:30 Hct 38.6 % (35.4-49) 09/06/16 06:30 MCV 76.0 fl (80-96) L 09/06/16 06:30 MCH 24.4 pg (25.7-33.7) L 09/06/16 06:30 MCHC 32.1 g/dl (32.0-35.9) 09/06/16 06:30 RDW 14.6 % (11.9-15.9) 09/06/16 06:30 Plt Count 180 K/MM3 (134-434) 09/06/16 06:30 MPV 7.9 fl (7.5-11.1) 09/06/16 06:30 Sodium 141 mmol/L (136-145) 09/06/16 06:30 Potassium 3.6 mmol/L (3.5-5.1) 09/06/16 06:30 Chloride 106 mmol/L (98-107) 09/06/16 06:30 Carbon Dioxide 28 mmol/L (21-32) 09/06/16 06:30 Anion Gap 7 (8-16) L 09/06/16 06:30 BUN 17 mg/dL (7-18) 09/06/16 06:30 Creatinine 0.9 mg/dL (0.7-1.3) 09/06/16 06:30 Creat Clearance w eGFR > 60 (>60) 09/06/16 06:30 Random Glucose 78 mg/dL (74-106) 09/06/16 06:30 Calcium 8.5 mg/dL (8.5-10.1) 09/06/16 06:30 Total Bilirubin 0.3 mg/dL (0.2-1.0) D 09/06/16 06:30 AST 23 U/L (15-37) 09/06/16 06:30 ALT 23 U/L (12-78) 09/06/16 06:30 Alkaline Phosphatase 64 U/L (45-117) 09/06/16 06:30 Total Protein 5.8 g/dl (6.4-8.2) L 09/06/16 06:30 Albumin 3.2 g/dl (3.4-5.0) L 09/06/16 06:30 Urine Color Yellow 09/05/16 20:00 Urine Appearance Clear 09/05/16 20:00 Urine pH 6.0 (5.0-8.0) 09/05/16 20:00 Ur Specific [place] 1.025 (1.005-1.025) 09/05/16 20:00 Urine Protein Negative (NEGATIVE) 09/05/16 20:00 Urine Glucose (UA) Negative (NEGATIVE) 09/05/16 20:00 Urine Ketones Trace (NEGATIVE) H 09/05/16 20:00 Urine Blood Negative (NEGATIVE) 09/05/16 20:00 Urine Nitrite Negative (NEGATIVE) 09/05/16 20:00 Urine Bilirubin Negative (NEGATIVE) 09/05/16 20:00 Urine Urobilinogen 2.0 mg/dL (0.2-1.0) 09/05/16 20:00 Ur Leukocyte Esterase Negative (NEGATIVE) 09/05/16 20:00 RPR Titer Nonreactive (NONREACTIVE) 09/06/16 06:30 Assessment: 09/06/16 13:17 WITHDRAWAL SX Plan: CONTINUE DETOX
[2016-09-06] MEDS: THIAMINE HCL 100 MG TABLET (FP) PO SCH (22:32)
[2016-09-06] MEDS: OLANZapine 10 MG TABLET PO SCH (22:32)
[2016-09-06] MEDS: traZODone HCL 50 MG TABLET (FP) PO SCH (22:32)
[2016-09-07] MEDS: chlordiazePOXIDE HCL 25 MG CAPSULE PO SCH ×3 (05:36→19:16)
[2016-09-07] MEDS: PRENATAL VITAMINS W/ FOLIC ACID TABLET (FP) PO SCH (10:53)
--- NOTE | 2016-09-07 11:39 | PN ---
[facility] CIWA - CIWA Score Nausea/Vomitin-No Nausea/No Vomiting Muscle Tremors: 4-Moderate,w/Arms Extend Anxiety: 4-Mod. Anxious/Guarded Agitation: 4-Moderately Restless Paroxysmal Sweats: 1-Minimal Palms Moist Orientation: 0-Oriented Tacttile Disturbances: 3-Moderate Itch/Numb/Burn Auditory Disturbances: 0-None Visual Disturbances: 0-None Headache: 0-None Present CIWA-Ar Total Score: 16 S Progress Note (SOAP) Subjective: ANXIETY,SLIGHT TREMORS,FATIGUE. Objective: 09/07/16 11:39 Vital Signs Temperature 98.2 F 09/07/16 10:00 Pulse Rate 54 L 09/07/16 10:00 Respiratory Rate 16 09/07/16 10:00 Blood Pressure 122/76 09/07/16 10:00 O2 Sat by Pulse Oximetry (%) Laboratory Last Values WBC 5.2 K/mm3 (4.0-10.0) D 09/06/16 06:30 RBC 5.08 M/mm3 (4.00-5.60) 09/06/16 06:30 Hgb 12.4 GM/dL (11.7-16.9) 09/06/16 06:30 Hct 38.6 % (35.4-49) 09/06/16 06:30 MCV 76.0 fl (80-96) L 09/06/16 06:30 MCH 24.4 pg (25.7-33.7) L 09/06/16 06:30 MCHC 32.1 g/dl (32.0-35.9) 09/06/16 06:30 RDW 14.6 % (11.9-15.9) 09/06/16 06:30 Plt Count 180 K/MM3 (134-434) 09/06/16 06:30 MPV 7.9 fl (7.5-11.1) 09/06/16 06:30 Sodium 141 mmol/L (136-145) 09/06/16 06:30 Potassium 3.6 mmol/L (3.5-5.1) 09/06/16 06:30 Chloride 106 mmol/L (98-107) 09/06/16 06:30 Carbon Dioxide 28 mmol/L (21-32) 09/06/16 06:30 Anion Gap 7 (8-16) L 09/06/16 06:30 BUN 17 mg/dL (7-18) 09/06/16 06:30 Creatinine 0.9 mg/dL (0.7-1.3) 09/06/16 06:30 Creat Clearance w eGFR > 60 (>60) 09/06/16 06:30 Random Glucose 78 mg/dL (74-106) 09/06/16 06:30 Calcium 8.5 mg/dL (8.5-10.1) 09/06/16 06:30 Total Bilirubin 0.3 mg/dL (0.2-1.0) D 09/06/16 06:30 AST 23 U/L (15-37) 09/06/16 06:30 ALT 23 U/L (12-78) 09/06/16 06:30 Alkaline Phosphatase 64 U/L (45-117) 09/06/16 06:30 Total Protein 5.8 g/dl (6.4-8.2) L 09/06/16 06:30 Albumin 3.2 g/dl (3.4-5.0) L 09/06/16 06:30 Urine Color Yellow 09/05/16 20:00 Urine Appearance Clear 09/05/16 20:00 Urine pH 6.0 (5.0-8.0) 09/05/16 20:00 Ur Specific [place] 1.025 (1.005-1.025) 09/05/16 20:00 Urine Protein Negative (NEGATIVE) 09/05/16 20:00 Urine Glucose (UA) Negative (NEGATIVE) 09/05/16 20:00 Urine Ketones Trace (NEGATIVE) H 09/05/16 20:00 Urine Blood Negative (NEGATIVE) 09/05/16 20:00 Urine Nitrite Negative (NEGATIVE) 09/05/16 20:00 Urine Bilirubin Negative (NEGATIVE) 09/05/16 20:00 Urine Urobilinogen 2.0 mg/dL (0.2-1.0) 09/05/16 20:00 Ur Leukocyte Esterase Negative (NEGATIVE) 09/05/16 20:00 RPR Titer Nonreactive (NONREACTIVE) 09/06/16 06:30 Assessment: 09/07/16 11:39 WITHDRAWAL SX Plan: CONTINUE DETOX
[2016-09-07] MEDS: ONDANSETRON *ODT* 4 MG TABLET SL PRN (17:45)
[2016-09-07] MEDS: TRIMETHOBENZAMIDE HCL 200MG/2ML INJ IM PRN (20:04)
[2016-09-07] MEDS: traZODone HCL 50 MG TABLET (FP) PO SCH (22:19)
[2016-09-07] MEDS: OLANZapine 10 MG TABLET PO SCH (22:19)
[2016-09-07] MEDS: THIAMINE HCL 100 MG TABLET (FP) PO SCH (22:19)
[2016-09-07] MEDS: chlordiazePOXIDE 5 MG CAPSULE PO SCH (22:19)
[2016-09-08] MEDS: chlordiazePOXIDE 5 MG CAPSULE PO SCH ×3 (05:36→17:16)
[2016-09-08] MEDS: PRENATAL VITAMINS W/ FOLIC ACID TABLET (FP) PO SCH (10:38)
--- NOTE | 2016-09-08 11:37 | PN ---
[facility] Progress Note (SOAP) Subjective: ANXIETY,TIREDNESS,CHILLS,TREMORS. Objective: 09/08/16 11:36 Vital Signs Temperature 96.8 F L 09/08/16 09:20 Pulse Rate 88 09/08/16 09:20 Respiratory Rate 18 09/08/16 09:20 Blood Pressure 125/77 09/08/16 09:20 O2 Sat by Pulse Oximetry (%) Laboratory Last Values WBC 5.2 K/mm3 (4.0-10.0) D 09/06/16 06:30 RBC 5.08 M/mm3 (4.00-5.60) 09/06/16 06:30 Hgb 12.4 GM/dL (11.7-16.9) 09/06/16 06:30 Hct 38.6 % (35.4-49) 09/06/16 06:30 MCV 76.0 fl (80-96) L 09/06/16 06:30 MCH 24.4 pg (25.7-33.7) L 09/06/16 06:30 MCHC 32.1 g/dl (32.0-35.9) 09/06/16 06:30 RDW 14.6 % (11.9-15.9) 09/06/16 06:30 Plt Count 180 K/MM3 (134-434) 09/06/16 06:30 MPV 7.9 fl (7.5-11.1) 09/06/16 06:30 Sodium 141 mmol/L (136-145) 09/06/16 06:30 Potassium 3.6 mmol/L (3.5-5.1) 09/06/16 06:30 Chloride 106 mmol/L (98-107) 09/06/16 06:30 Carbon Dioxide 28 mmol/L (21-32) 09/06/16 06:30 Anion Gap 7 (8-16) L 09/06/16 06:30 BUN 17 mg/dL (7-18) 09/06/16 06:30 Creatinine 0.9 mg/dL (0.7-1.3) 09/06/16 06:30 Creat Clearance w eGFR > 60 (>60) 09/06/16 06:30 Random Glucose 78 mg/dL (74-106) 09/06/16 06:30 Calcium 8.5 mg/dL (8.5-10.1) 09/06/16 06:30 Total Bilirubin 0.3 mg/dL (0.2-1.0) D 09/06/16 06:30 AST 23 U/L (15-37) 09/06/16 06:30 ALT 23 U/L (12-78) 09/06/16 06:30 Alkaline Phosphatase 64 U/L (45-117) 09/06/16 06:30 Total Protein 5.8 g/dl (6.4-8.2) L 09/06/16 06:30 Albumin 3.2 g/dl (3.4-5.0) L 09/06/16 06:30 Urine Color Yellow 09/05/16 20:00 Urine Appearance Clear 09/05/16 20:00 Urine pH 6.0 (5.0-8.0) 09/05/16 20:00 Ur Specific [place] 1.025 (1.005-1.025) 09/05/16 20:00 Urine Protein Negative (NEGATIVE) 09/05/16 20:00 Urine Glucose (UA) Negative (NEGATIVE) 09/05/16 20:00 Urine Ketones Trace (NEGATIVE) H 09/05/16 20:00 Urine Blood Negative (NEGATIVE) 09/05/16 20:00 Urine Nitrite Negative (NEGATIVE) 09/05/16 20:00 Urine Bilirubin Negative (NEGATIVE) 09/05/16 20:00 Urine Urobilinogen 2.0 mg/dL (0.2-1.0) 09/05/16 20:00 Ur Leukocyte Esterase Negative (NEGATIVE) 09/05/16 20:00 RPR Titer Nonreactive (NONREACTIVE) 09/06/16 06:30 Assessment: 09/08/16 11:37 WITHDRAWAL SX Plan: CONTINUE DETOX
[2016-09-08] MEDS: chlordiazePOXIDE HCL 10 MG CAPSULE PO SCH (22:12)
[2016-09-08] MEDS: diphenhydrAMINE HCL 50 MG CAPSULE PO PRN (22:12)
[2016-09-08] MEDS: traZODone HCL 50 MG TABLET (FP) PO SCH (22:12)
[2016-09-08] MEDS: OLANZapine 10 MG TABLET PO SCH (22:12)
[2016-09-08] MEDS: THIAMINE HCL 100 MG TABLET (FP) PO SCH (22:12)
[2016-09-09] MEDS: ONDANSETRON *ODT* 4 MG TABLET SL PRN (00:52)
[2016-09-09] MEDS: TRIMETHOBENZAMIDE HCL 200MG/2ML INJ IM PRN (01:40)
[2016-09-09] MEDS: chlordiazePOXIDE HCL 10 MG CAPSULE PO SCH (06:26)
[2016-09-09 10:18] VITALS: BP 111/69; PULSE 81; TEMP 97.5
--- NOTE | 2016-09-09 13:35 | DS ---
[facility] Detox Discharge Summary Admission Date: 09/05/16 Discharge Date: 09/09/16 - History Present History: Alcohol Dependence, Cannabis Dependence, Cocaine Dependence Additional Comments: PATIENT GOING HOME. INFORMATION ON 12-STEP / AA / NA OUTPATIENT SUPPORT GROUP REFERRAL RESOURCE INFORMATION PROVIDED FOR FOLLOW-UP FOR AFTERCARE. Pertinent Past History: Insomnia, Depression, Bipolar Disorder, Schizophrenia. - Physical Exam Results Vital Signs: Vital Signs Temperature 97.5 F L 09/09/16 10:17 Pulse Rate 81 09/09/16 10:17 Respiratory Rate 18 09/09/16 10:17 Blood Pressure 111/69 09/09/16 10:17 O2 Sat by Pulse Oximetry (%) Pertinent Admission Physical Exam Findings: WITHDRAWAL SYMPTOMS. Laboratory Tests 09/05/16 09/06/16 09/06/16 20:00 06:30 06:30 WBC 5.2 D RBC 5.08 Hgb 12.4 Hct 38.6 MCV 76.0 L MCH 24.4 L MCHC 32.1 RDW 14.6 Plt Count 180 MPV 7.9 Sodium 141 Potassium 3.6 Chloride 106 Carbon Dioxide 28 Anion Gap 7 L BUN 17 Creatinine 0.9 Creat Clearance w eGFR > 60 Random Glucose 78 Calcium 8.5 Total Bilirubin 0.3 D AST 23 ALT 23 Alkaline Phosphatase 64 Total Protein 5.8 L Albumin 3.2 L Urine Color Yellow Urine Appearance Clear Urine pH 6.0 Ur Specific [place] 1.025 Urine Protein Negative Urine Glucose (UA) Negative Urine Ketones Trace H Urine Blood Negative Urine Nitrite Negative Urine Bilirubin Negative Urine Urobilinogen 2.0 Ur Leukocyte Esterase Negative RPR Titer 09/06/16 06:30 WBC RBC Hgb Hct MCV MCH MCHC RDW Plt Count MPV Sodium Potassium Chloride Carbon Dioxide Anion Gap BUN Creatinine Creat Clearance w eGFR Random Glucose Calcium Total Bilirubin AST ALT Alkaline Phosphatase Total Protein Albumin Urine Color Urine Appearance Urine pH Ur Specific [place] Urine Protein Urine Glucose (UA) Urine Ketones Urine Blood Urine Nitrite Urine Bilirubin Urine Urobilinogen Ur Leukocyte Esterase RPR Titer Nonreactive LABS NOTED. - Treatment Hospital Course: Detox Protocol Followed, Detoxed Safely, Responded well, Discharged Condition Good Patient has Accepted a Rehab Referral to: [facility]. 12-STEP/AA/NA OUTPATIENT SUPPORT GROUP INFO. PROVIDED. - Medication Discharge Medications: Ambulatory Orders Trazodone HCl [Desyrel -] 50 mg PO HS 10/07/15 Olanzapine [Zyprexa] 10 mg PO HS #30 tablet 06/23/16 Olanzapine 10 mg PO HS #30 tablet 09/06/16 Trazodone HCl [Desyrel -] 50 mg PO HS #30 tablet 09/06/16 - Diagnosis (1) Alcohol dependence with uncomplicated withdrawal Status: Acute (2) Cannabis dependence Status: Acute (3) Cocaine dependence Status: Acute (4) Insomnia Status: Acute Qualifiers: Insomnia type: unspecified Qualified Code(s): G47.00 - Insomnia, unspecified (5) Nicotine dependence Status: Chronic Qualifiers: Nicotine product type: cigarettes Substance use status: in withdrawal Qualified Code(s): F17.213 - Nicotine dependence, cigarettes, with withdrawal (6) Substance induced mood disorder Status: Acute (7) Low back pain Status: Chronic (8) Paranoid schizophrenia Status: Chronic - AMA Did Patient Leave Against Medical Advice: No
== END 2016-09-09 10:48 | disposition home or self-care (01) | DRG 774 ==
LOC: YASAS 12:56 → Y3N 17:48
PROVIDERS: ADMIT Internal Medicine; ATTEND Internal Medicine
PROC: HZ2ZZZZ Detoxification Services for Substance Abuse Treatment (ICD-10-PCS; principal; 2016-09-09)
DX: F10.230 Alcohol dependence with withdrawal, uncomplicated (principal); F14.20 Cocaine dependence, uncomplicated; F12.20 Cannabis dependence, uncomplicated; F17.213 Nicotine dependence, cigarettes, with withdrawal; F19.24 Other psychoactive substance dependence with psychoactive substance-induced mood disorder; F20.0 Paranoid schizophrenia; G47.00 Insomnia, unspecified; M54.5 Low back pain; G89.29 Other chronic pain
CPT/HCPCS: 36415; 80053; 81003; 85027; 86593; 93005; 93010

== ENCOUNTER 2016-09-12 12:18 | Inpatient (IN) | payer OTHER ==
[2016-09-12 12:37] VITALS: BMI 24.2
[2016-09-12] MEDS ORDERED: guaiFENesin/D-METHORPHAN HB 10 ML UNIT-DOSE CUPS PO PRN (13:58)
[2016-09-12] MEDS ORDERED: LOPERAMIDE HCL 2 MG CAPSULE PO PRN (13:58)
[2016-09-12] MEDS ORDERED: IBUPROFEN 400 MG TABLET (FP) PO PRN (13:58)
[2016-09-12] MEDS ORDERED: hydrOXYzine PAMOATE 50 MG CAPSULE (FP) PO PRN (13:58)
[2016-09-12] MEDS ORDERED: MAGNESIUM HYDROX 2400MG/30ML ORAL SUSPENSION 30 ML CUP PO PRN (13:58)
[2016-09-12] MEDS ORDERED: MENTHOL/PHENOL 1 EACH UD MM PRN (13:58)
[2016-09-12] MEDS ORDERED: P-EPHED 60MG/TRIPROLIDI 2.5MG TABLET PO PRN (13:58)
[2016-09-12] MEDS ORDERED: ACETAMINOPHEN 325 MG TABLET (FP) PO PRN (13:58)
[2016-09-12] MEDS ORDERED: NICOTINE POLACRILEX 2 MG GUM BUC PRN (13:58)
[2016-09-12] MEDS ORDERED: MAGNESIUM CITRATE 300 ML BOTTLE PO PRN (13:58)
--- NOTE | 2016-09-12 13:59 | HP ---
[facility] Assess/Revision - Admission History Admitted to Rehab from: [facility] - Vital signs Vital Signs: Vital Signs Period Temp Pulse Resp BP Sys/Vences Pulse Ox Last 24 Hr 97 F 77 20 114/68 - Findings Detox History & Physical reviewed: Yes Concur with findings: Yes
[2016-09-12] MEDS: THIAMINE HCL 100 MG TABLET (FP) PO SCH (21:09)
--- NOTE | 2016-09-12 21:26 | PN ---
S Progress Note Note: Attending airconditioning drafting officer's note : Called by nurse to enter orders for olanzapine and trazodone. Mr Roblero is already known to this display card writer.Just transferred from [address] [place] [address]. See my note of 09/06/16. Plan : Trazodone 50 mg po hs + zyprexa 10 mg po hs.Ordered.
[2016-09-12] MEDS: traZODone HCL 50 MG TABLET (FP) PO SCH (22:08)
[2016-09-12] MEDS: OLANZapine 10 MG TABLET PO SCH (22:08)
[2016-09-12 23:32] LABS: URINE APPEARANCE CLEAR; URINE BILIRUBIN NEGATIVE (NEGATIVE); URINE BLOOD NEGATIVE (NEGATIVE); URINE COLOR YELLOW; URINE GLUCOSE (UA) NEGATIVE (NEGATIVE); URINE KETONE NEGATIVE (NEGATIVE); URINE LEUK ESTERASE NEGATIVE (NEGATIVE); URINE NITRITE NEGATIVE (NEGATIVE); URINE PROTEIN NEGATIVE (NEGATIVE); URINE UROBILINOGEN NEGATIVE mg/dL (0.2-1.0)
[2016-09-13] MEDS: MAG HYDROX/AL HYDROX/SIMETH 30 ML UNIT-DOSE CUP PO PRN (06:37)
[2016-09-13] MEDS: TRIMETHOBENZAMIDE HCL 200MG/2ML INJ IM PRN (07:14)
[2016-09-13] MEDS: NICOTINE 7 MG/24 HOURS TOPICAL PATCH TD SCH (09:45)
[2016-09-13] MEDS: PRENATAL VITAMINS W/ FOLIC ACID TABLET (FP) PO SCH (09:45)
--- NOTE | 2016-09-13 11:16 | HP ---
Psychiatrist Admission - Data Date of interview: 09/13/16 Admission source: 3N Identifying data: This is the third inpatient rehabilitation admission, first 5n for this 46 year old Black male who is single, domiciled lives with his mother, unemployed and supported on SSI benefits. Medical History: History of PE, anemia and chronic back pain.Smokes cigarettes 3 -5 a day. Psychiatric History: Patient reports was diagnosed with Paranoid Shcizophrenia, reports several psychiatric hospitalizations, with most recent in 2015 at [facility]. He is non-compliane with f/u and medications, states he visits Ers to obtain his scripts. He currently on Zyprexa 10 mg po daily, Trazodone 50 mg po hs. Patient admits history of self-mutilations(several old scars on his arms). While in detox. seen by and domenica his medications. Physical/Sexual Abuse/Trauma History: Patient denies Vital Signs: Vital Signs - 24 hr 09/12/16 09/12/16 09/13/16 12:35 17:30 00:30 Temperature 97 F L 97.8 F Pulse Rate 77 71 Respiratory 20 20 16 Rate Blood Pressure 114/68 135/69 09/13/16 09/13/16 03:30 06:30 Temperature 97.5 F L Pulse Rate 71 Respiratory 16 18 Rate Blood Pressure 147/78 Allergies/Adverse Reactions: Allergies Allergy/AdvReac Type Severity Reaction Status Date / Time No Known Drug Allergies Allergy Verified 09/12/16 13:18 PASTA Allergy Severe Vomiting Uncoded 09/12/16 13:18 Date of last physical exam: 09/05/16 Concur with the findings of this exam: Yes - Substance Abuse/Tx History Hx Alcohol Use: Yes Hx Substance Use: Yes (started at age of 19, he consumes daily 1 pint of vodka) Substance Use Type: Alcohol, Marijuana (daily $20) Hx Substance Use Treatment: Yes ([facility] 3W) - Admission Criteria Previous failed treatment: Yes Poor recovery environment: Yes Comorbidities: Yes Lacks judgement: Yes Mental Status Exam - Mental Status Exam Alert and Oriented to: Place, Person Cognitive Function: Grossly Intact Patient Appearance: Unkempt Mood: Withdrawn, Anxious Affect: Appropriate, Mood Congruent Patient Behavior: Appropriate, Cooperative Speech Pattern: Clear, Appropriate Voice Loudness: Normal Thought Process: Goal Oriented Thought Disorder: Not Present Hallucinations: Denies Suicidal Ideation: Denies Homicidal Ideation: Denies Insight/Judgement: Fair Sleep: Fair Appetite: Poor Muscle strength/Tone: Normal Gait/Station: Normal Psychiatric Findings - Problem List ([place] 1, 2,3) (1) Alcohol dependence Current Visit: No Status: Acute (2) Cannabis dependence Current Visit: No Status: Acute (3) Cocaine dependence Current Visit: No Status: Acute (4) Paranoid schizophrenia Current Visit: No Status: Chronic - Initial Treatment Plan Initial Treatment Plan: Will continue his current medications, monitor progress as needed.
--- NOTE | 2016-09-13 11:32 | PN ---
[facility] Progress Note Note: having loose bowel movement ,vomiting dairrhea, abdomen soft,no distension no pain or tenderness bowel sound active improving with tigan 200 mgs im immodium prn close monitoring
[2016-09-13] MEDS: OLANZapine 10 MG TABLET PO SCH (21:20)
[2016-09-13] MEDS: traZODone HCL 50 MG TABLET (FP) PO SCH (21:21)
[2016-09-13] MEDS: THIAMINE HCL 100 MG TABLET (FP) PO SCH (21:21)
[2016-09-14] MEDS: MAG HYDROX/AL HYDROX/SIMETH 30 ML UNIT-DOSE CUP PO PRN (09:43)
[2016-09-14] MEDS: NICOTINE 7 MG/24 HOURS TOPICAL PATCH TD SCH (09:43)
[2016-09-14] MEDS: PRENATAL VITAMINS W/ FOLIC ACID TABLET (FP) PO SCH (09:44)
[2016-09-14] MEDS: OLANZapine 10 MG TABLET PO SCH (21:14)
[2016-09-14] MEDS: THIAMINE HCL 100 MG TABLET (FP) PO SCH (21:14)
[2016-09-14] MEDS: traZODone HCL 50 MG TABLET (FP) PO SCH (21:15)
[2016-09-15] MEDS: PRENATAL VITAMINS W/ FOLIC ACID TABLET (FP) PO SCH (09:29)
[2016-09-15] MEDS: NICOTINE 7 MG/24 HOURS TOPICAL PATCH TD SCH (09:29)
[2016-09-15] MEDS: traZODone HCL 50 MG TABLET (FP) PO SCH (21:08)
[2016-09-15] MEDS: THIAMINE HCL 100 MG TABLET (FP) PO SCH (21:08)
[2016-09-15] MEDS: OLANZapine 10 MG TABLET PO SCH (21:08)
[2016-09-16] MEDS: NICOTINE 7 MG/24 HOURS TOPICAL PATCH TD SCH (09:43)
[2016-09-16] MEDS: PRENATAL VITAMINS W/ FOLIC ACID TABLET (FP) PO SCH (09:44)
[2016-09-16] MEDS ORDERED: PT OWN MED DRAWER 7, Y5N ONE (20:51)
[2016-09-16] MEDS: traZODone HCL 50 MG TABLET (FP) PO SCH (22:33)
[2016-09-16] MEDS: THIAMINE HCL 100 MG TABLET (FP) PO SCH (22:33)
[2016-09-16] MEDS: OLANZapine 10 MG TABLET PO SCH (23:02)
[2016-09-17] MEDS: NICOTINE 7 MG/24 HOURS TOPICAL PATCH TD SCH (09:54)
[2016-09-17] MEDS: PRENATAL VITAMINS W/ FOLIC ACID TABLET (FP) PO SCH (09:54)
[2016-09-17] MEDS: THIAMINE HCL 100 MG TABLET (FP) PO SCH (21:06)
[2016-09-17] MEDS: traZODone HCL 50 MG TABLET (FP) PO SCH (21:06)
[2016-09-17] MEDS: OLANZapine 10 MG TABLET PO SCH (21:07)
[2016-09-17] MEDS: diphenhydrAMINE HCL 50 MG CAPSULE PO PRN (21:07)
[2016-09-18] MEDS: NICOTINE 7 MG/24 HOURS TOPICAL PATCH TD SCH (09:57)
[2016-09-18] MEDS: PRENATAL VITAMINS W/ FOLIC ACID TABLET (FP) PO SCH (09:58)
[2016-09-18] MEDS: MAG HYDROX/AL HYDROX/SIMETH 30 ML UNIT-DOSE CUP PO PRN (15:11)
[2016-09-18] MEDS: TRIMETHOBENZAMIDE HCL 200MG/2ML INJ IM PRN (17:48)
[2016-09-18] MEDS: diphenhydrAMINE HCL 50 MG CAPSULE PO PRN (21:08)
[2016-09-18] MEDS: traZODone HCL 50 MG TABLET (FP) PO SCH (21:08)
[2016-09-18] MEDS: THIAMINE HCL 100 MG TABLET (FP) PO SCH (21:08)
[2016-09-18] MEDS: OLANZapine 10 MG TABLET PO SCH (21:09)
[2016-09-19] MEDS: PRENATAL VITAMINS W/ FOLIC ACID TABLET (FP) PO SCH (09:53)
[2016-09-19] MEDS: NICOTINE 7 MG/24 HOURS TOPICAL PATCH TD SCH (09:53)
[2016-09-19] MEDS: traZODone HCL 50 MG TABLET (FP) PO SCH (21:12)
[2016-09-19] MEDS: OLANZapine 10 MG TABLET PO SCH (21:12)
[2016-09-19] MEDS: diphenhydrAMINE HCL 50 MG CAPSULE PO PRN (21:12)
[2016-09-19] MEDS: THIAMINE HCL 100 MG TABLET (FP) PO SCH (21:12)
[2016-09-20] MEDS: NICOTINE 7 MG/24 HOURS TOPICAL PATCH TD SCH (10:03)
[2016-09-20] MEDS: PRENATAL VITAMINS W/ FOLIC ACID TABLET (FP) PO SCH (10:03)
[2016-09-20] MEDS: traZODone HCL 50 MG TABLET (FP) PO SCH (21:06)
[2016-09-20] MEDS: diphenhydrAMINE HCL 50 MG CAPSULE PO PRN (21:06)
[2016-09-20] MEDS: THIAMINE HCL 100 MG TABLET (FP) PO SCH (21:06)
[2016-09-20] MEDS: OLANZapine 10 MG TABLET PO SCH (21:06)
[2016-09-21] MEDS: TRIMETHOBENZAMIDE HCL 200MG/2ML INJ IM PRN (02:11)
[2016-09-21] MEDS: MAG HYDROX/AL HYDROX/SIMETH 30 ML UNIT-DOSE CUP PO PRN (02:15)
[2016-09-21] MEDS: PRENATAL VITAMINS W/ FOLIC ACID TABLET (FP) PO SCH (09:46)
[2016-09-21] MEDS: NICOTINE 7 MG/24 HOURS TOPICAL PATCH TD SCH (09:46)
[2016-09-21] MEDS: OLANZapine 10 MG TABLET PO SCH (21:12)
[2016-09-21] MEDS: diphenhydrAMINE HCL 50 MG CAPSULE PO PRN (21:12)
[2016-09-21] MEDS: THIAMINE HCL 100 MG TABLET (FP) PO SCH (21:12)
[2016-09-21] MEDS: traZODone HCL 50 MG TABLET (FP) PO SCH (21:12)
[2016-09-22] MEDS: NICOTINE 7 MG/24 HOURS TOPICAL PATCH TD SCH (09:36)
[2016-09-22] MEDS: PRENATAL VITAMINS W/ FOLIC ACID TABLET (FP) PO SCH (09:36)
[2016-09-22] MEDS: THIAMINE HCL 100 MG TABLET (FP) PO SCH (21:07)
[2016-09-22] MEDS: OLANZapine 10 MG TABLET PO SCH (21:07)
[2016-09-22] MEDS: traZODone HCL 50 MG TABLET (FP) PO SCH (21:07)
[2016-09-22] MEDS: diphenhydrAMINE HCL 50 MG CAPSULE PO PRN (21:08)
[2016-09-23] MEDS: PRENATAL VITAMINS W/ FOLIC ACID TABLET (FP) PO SCH (09:35)
[2016-09-23] MEDS: NICOTINE 7 MG/24 HOURS TOPICAL PATCH TD SCH (09:35)
[2016-09-23] MEDS: diphenhydrAMINE HCL 50 MG CAPSULE PO PRN (21:19)
[2016-09-23] MEDS: traZODone HCL 50 MG TABLET (FP) PO SCH (21:19)
[2016-09-23] MEDS: OLANZapine 10 MG TABLET PO SCH (21:19)
[2016-09-23] MEDS: THIAMINE HCL 100 MG TABLET (FP) PO SCH (21:19)
[2016-09-23] MEDS: TRIMETHOBENZAMIDE HCL 200MG/2ML INJ IM PRN (23:07)
[2016-09-24] MEDS: NICOTINE 7 MG/24 HOURS TOPICAL PATCH TD SCH (09:44)
[2016-09-24] MEDS: PRENATAL VITAMINS W/ FOLIC ACID TABLET (FP) PO SCH (09:44)
[2016-09-24] MEDS: traZODone HCL 50 MG TABLET (FP) PO SCH (21:09)
[2016-09-24] MEDS: THIAMINE HCL 100 MG TABLET (FP) PO SCH (21:09)
[2016-09-24] MEDS: OLANZapine 10 MG TABLET PO SCH (21:09)
[2016-09-24] MEDS: diphenhydrAMINE HCL 50 MG CAPSULE PO PRN (21:09)
[2016-09-25] MEDS: PRENATAL VITAMINS W/ FOLIC ACID TABLET (FP) PO SCH (10:03)
[2016-09-25] MEDS: NICOTINE 7 MG/24 HOURS TOPICAL PATCH TD SCH (10:03)
[2016-09-25] MEDS: OLANZapine 10 MG TABLET PO SCH (21:06)
[2016-09-25] MEDS: THIAMINE HCL 100 MG TABLET (FP) PO SCH (21:06)
[2016-09-25] MEDS: traZODone HCL 50 MG TABLET (FP) PO SCH (21:06)
[2016-09-25] MEDS: diphenhydrAMINE HCL 50 MG CAPSULE PO PRN (21:07)
[2016-09-25] MEDS: MAG HYDROX/AL HYDROX/SIMETH 30 ML UNIT-DOSE CUP PO PRN (21:07)
[2016-09-26] MEDS: NICOTINE 7 MG/24 HOURS TOPICAL PATCH TD SCH (09:56)
[2016-09-26] MEDS: PRENATAL VITAMINS W/ FOLIC ACID TABLET (FP) PO SCH (09:56)
[2016-09-26] MEDS ORDERED: ONDANSETRON *ODT* 4 MG TABLET SL PRN (11:16)
[2016-09-26] MEDS: OLANZapine 10 MG TABLET PO SCH (21:11)
[2016-09-26] MEDS: diphenhydrAMINE HCL 50 MG CAPSULE PO PRN (21:11)
[2016-09-26] MEDS: THIAMINE HCL 100 MG TABLET (FP) PO SCH (21:11)
[2016-09-26] MEDS: traZODone HCL 50 MG TABLET (FP) PO SCH (21:11)
[2016-09-27] MEDS: NICOTINE 7 MG/24 HOURS TOPICAL PATCH TD SCH (09:59)
[2016-09-27] MEDS: PRENATAL VITAMINS W/ FOLIC ACID TABLET (FP) PO SCH (09:59)
[2016-09-27] MEDS: THIAMINE HCL 100 MG TABLET (FP) PO SCH (21:12)
[2016-09-27] MEDS: traZODone HCL 50 MG TABLET (FP) PO SCH (21:12)
[2016-09-27] MEDS: OLANZapine 10 MG TABLET PO SCH (21:12)
[2016-09-27] MEDS: diphenhydrAMINE HCL 50 MG CAPSULE PO PRN (21:12)
[2016-09-27] MEDS: MAG HYDROX/AL HYDROX/SIMETH 30 ML UNIT-DOSE CUP PO PRN (21:13)
[2016-09-28] MEDS: NICOTINE 7 MG/24 HOURS TOPICAL PATCH TD SCH (09:57)
[2016-09-28] MEDS: PRENATAL VITAMINS W/ FOLIC ACID TABLET (FP) PO SCH (09:57)
[2016-09-28] MEDS: traZODone HCL 50 MG TABLET (FP) PO SCH (21:52)
[2016-09-28] MEDS: THIAMINE HCL 100 MG TABLET (FP) PO SCH (21:52)
[2016-09-28] MEDS: OLANZapine 10 MG TABLET PO SCH (21:52)
[2016-09-28] MEDS: diphenhydrAMINE HCL 50 MG CAPSULE PO PRN (21:52)
[2016-09-29 06:39] VITALS: BP 118/80; PULSE 98; TEMP 98.6
[2016-09-29] MEDS: NICOTINE 7 MG/24 HOURS TOPICAL PATCH TD SCH (09:45)
[2016-09-29] MEDS: PRENATAL VITAMINS W/ FOLIC ACID TABLET (FP) PO SCH (09:45)
--- NOTE | 2016-09-29 16:35 | PN ---
Psychiatric Progress Note Vital Signs: Vital Signs Period Temp Pulse Resp BP Sys/Vences Pulse Ox Last 24 Hr 98.6 F 98 16-18 118/80 Date of Session: 09/29/16 Chief Complaint:: Discharge visit HPI: Patient addressed Alcohol,Cocaine and Cannabis dependence comorbid with Substance induced mood disorder. ROS: Low back pain. Current Medications: Active Medications Generic Name Dose Route Start Last Admin Trade Name Freq PRN Reason Stop Dose Admin Acetaminophen 650 mg 09/12/16 13:58 Tylenol - PO Q4H PRN PAIN Al Hydroxide/Mg Hydroxide 30 ml 09/12/16 13:58 09/27/16 21:13 Mylanta Oral Suspension - PO 30 ml Q6H PRN Administration DYSPEPSIA Diphenhydramine HCl 50 mg 09/12/16 13:58 09/28/16 21:52 Benadryl - PO 50 mg HSMR1 PRN Administration INSOMNIA Eucalyptus/Menthol/Phenol/Sorbitol 1 each 09/12/16 13:58 Cepastat Lozenge - MM Q4H PRN SORE THROAT Guaifenesin 10 ml 09/12/16 13:58 Robitussin Dm - PO Q6H PRN COUGH Hydroxyzine Pamoate 50 mg 09/12/16 13:58 Vistaril - PO Q4H PRN AGITATION Ibuprofen 400 mg 09/12/16 13:58 Motrin - PO Q6H PRN SEVERE PAIN Loperamide HCl 4 mg 09/12/16 13:58 09/14/16 04:19 Imodium - PO 4 mg Q6H PRN Administration DIARRHEA Magnesium Citrate 300 ml 09/12/16 13:58 Citroma - PO Q48H PRN CONSTIPATION Magnesium Hydroxide 30 ml 09/12/16 13:58 Milk Of Magnesia - PO DAILY PRN CONSTIPATION Nicotine 7 mg 09/13/16 10:00 09/29/16 09:45 Nicoderm Patch - TD Not Given DAILY JESE Nicotine Polacrilex 2 mg 09/12/16 13:58 Nicorette Gum - BUC Q2H PRN NICOTINE REPLACEMENT RX Olanzapine 10 mg 09/12/16 22:00 09/28/16 21:52 Zyprexa - PO 10 mg HS JESE Administration Ondansetron HCl 4 mg 09/26/16 11:16 09/26/16 21:12 Zofran Odt - SL 4 mg Q6H PRN Administration NAUSEA AND/OR VOMITING Multivit/Folic Acid/Iron 1 tab 09/13/16 10:00 09/29/16 09:45 Vitamins (Sj[facility]) - PO 1 tab DAILY JESE Administration Pseudoephedrine/Triprolidine 1 combo 09/12/16 13:58 Actifed - PO TID PRN NASAL CONGESTION Thiamine HCl 100 mg 09/12/16 22:00 09/28/16 21:52 Vitamin B1 - PO 100 mg HS JESE Administration Trazodone HCl 50 mg 09/12/16 22:00 09/28/16 21:52 Desyrel - PO 50 mg HS JESE Administration Current Side Effect: No Lab tests ordered: No Lab tests reviewed: Yes Provider note:: Patient completed this program today(early discharge).He has met his treatment goals partially and will continue to address his issues on outpatient basis at [facility].Patient reports finding that current medications:Trazodone 50 mg po hs and Zyprexa 10 mg po hs helps to cope with mood instabilty,anxiety,sleeping difficulties.Scripts for 30 days provided.Patient identifies areas of difficulties and ways which contributes to relapse and skills,supports he can utilze to maintain recovery. Patient is stable for discharge today. Total face to face time:: 25 Mental Status Exam - Mental Status Exam Alert and Oriented to: Time, Place, Person Cognitive Function: Grossly Intact Patient Appearance: Well Groomed Mood: Euthymic Affect: Mood Congruent, Labile Patient Behavior: Cooperative Speech Pattern: Clear Voice Loudness: Normal Thought Process: Goal Oriented Thought Disorder: Not Present Hallucinations: Denies Suicidal Ideation: Denies Homicidal Ideation: Denies Insight/Judgement: Fair Sleep: Fair Appetite: Good Muscle strength/Tone: Normal Gait/Station: Normal
== END 2016-09-29 16:35 | disposition home or self-care (01) | DRG 772 ==
LOC: YASAS 12:18 → Y5N 14:27
PROVIDERS: ADMIT Psychiatry & Neurology Psychiatry; ATTEND Psychiatry & Neurology Psychiatry
PROC: HZ42ZZZ Group Counseling for Substance Abuse Treatment, Cognitive-Behavioral (ICD-10-PCS; principal; 2016-09-12)
DX: F10.20 Alcohol dependence, uncomplicated (principal); F14.20 Cocaine dependence, uncomplicated; F12.20 Cannabis dependence, uncomplicated; F19.20 Other psychoactive substance dependence, uncomplicated; F20.0 Paranoid schizophrenia; M54.5 Low back pain; R10.9 Unspecified abdominal pain
CPT/HCPCS: 81003